=== PATIENT | female | born 1960 | race Caucasian/White ===

== ENCOUNTER → 2021-12-22 11:35 | Outpatient (CLI) | payer MEDICARE, OTHER, SELFPAY ==
[2021-12-22 18:46] LABS: Basophils # 0.1 K/mm3 (0-0.2); Basophils % 0.4 % (0.1-2.0); Eosinophils # 0.3 K/mm3 (0.0-0.4); Hematocrit 32.7 % (37.0-47.0); Hemoglobin 10.2 g/dL (12.2-16.2); Lymphocytes # 2.5 K/mm3 (0.7-4.5); Lymphocytes % 17.5 % (10-50); Mean Corpuscular HGB Conc 31.1 g/dL (31.8-35.4); Mean Corpuscular Hemoglobin 21.6 pg (27.0-31.2); Mean Corpuscular Volume 69.7 fl (81-99); Monocytes # 0.6 K/mm3 (0.1-1.0); Monocytes % 3.9 % (1.7-9.3); Neutrophils # 10.9 K/mm3 (1.8-7.8); Neutrophils % 76.3 % (37.0-80.0); Platelet Count 429 K/mm3 (142-424); Red Cell Distribution Width 18.4 % (11.5-17.5); White Blood Count 14.3 K/mm3 (4.8-10.8)
[2021-12-22 18:55] LABS: Alanine Aminotransferase 35 U/L (12-78); Albumin Level 4.4 g/dl (3.5-5.0); Albumin/Globulin Ratio 1.6 (1.1-1.8); Alkaline Phosphatase 96 U/L (38-126); Anion Gap 17.2 mEq/L (5-15); Aspartate Amino Transferase 58 U/L (14-36); Bilirubin,Total 0.6 mg/dl (0.2-1.3); Blood Urea Nitrogen 15 mg/dl (7-17); Calcium 9.2 mg/dl (8.4-10.2); Carbon Dioxide 29 mmol/L (22.0-30.0); Chloride 100 mmol/L (98-107); Chol/HDL Ratio 4.6 (1-3.5); Cholesterol 224 mg/dl (140-200); Estimated Glomerular Filt Rate 85 ml/min (>60); GFR (African American) 102 ML/MIN (>60); Globulin 2.8 g/dL (1.3-3.2); Glucose 122 mg/dl (74-100); HDL Cholesterol 49 mg/dl (40-60); Potassium 4.2 mmoL/L (3.5-5.1); Sodium 142 mmol/L (136-145); Total Protein,Serum 7.2 g/dl (6.3-8.2); Triglycerides 193 mg/dl (30-150); VLDL Cholesterol 39 mg/dL (0-40)
[2021-12-22 19:52] LABS: Hemoglobin A1C 7.2 % (4.0-6.0)
[2021-12-22 20:15] LABS: Direct LDL Cholesterol 147.54 mg/dL (100-129)
== END ==
PROVIDERS: PCP Family Medicine; Visit Provider Family Medicine
DX: E03.9 Hypothyroidism, unspecified (principal); I10 Essential (primary) hypertension; R73.9 Hyperglycemia, unspecified; Z00.00 Encounter for general adult medical examination without abnormal findings
CPT/HCPCS: 80053; 80061; 83036; 84443; 85025

== ENCOUNTER → 2022-04-21 23:16 | Outpatient (CLI) | payer MEDICARE, OTHER, SELFPAY ==
[2022-04-21 17:33] LABS: Basophils # 0.1 K/mm3 (0-0.2); Basophils % 0.5 % (0.1-2.0); Eosinophils # 0.2 K/mm3 (0.0-0.4); Eosinophils % 1.1 % (0.1-12.0); Hematocrit 40.4 % (37.0-47.0); Hemoglobin 12.6 g/dL (12.2-16.2); Lymphocytes # 2.6 K/mm3 (0.7-4.5); Lymphocytes % 18.5 % (10-50); Mean Corpuscular HGB Conc 31.2 g/dL (31.8-35.4); Mean Corpuscular Volume 76.8 fl (81-99); Mean Platelet Volume 8.4 fl (7.4-10.4); Monocytes # 0.8 K/mm3 (0.1-1.0); Neutrophils # 10.1 K/mm3 (1.8-7.8); Neutrophils % 73.8 % (37.0-80.0); Platelet Count 472 K/mm3 (142-424); Red Blood Count 5.26 M/mm3 (4.20-5.40); Red Cell Distribution Width 16.5 % (11.5-17.5); White Blood Count 13.7 K/mm3 (4.8-10.8)
[2022-04-21 17:41] LABS: Chloride 104 mmol/L (98-107); Potassium 3.9 mmoL/L (3.5-5.1); Sodium 141 mmol/L (136-145)
[2022-04-21 17:43] LABS: Alanine Aminotransferase 36 U/L (12-78); Blood Urea Nitrogen 18 mg/dl (7-17); Estimated Glomerular Filt Rate 125 ml/min (>60); GFR (African American) 151 ML/MIN (>60)
[2022-04-21 17:44] LABS: Albumin Level 4.4 g/dl (3.5-5.0); Albumin/Globulin Ratio 1.4 (1.1-1.8); Alkaline Phosphatase 80 U/L (38-126); Anion Gap 12.9 mEq/L (5-15); Aspartate Amino Transferase 53 U/L (14-36); Bilirubin,Total 0.9 mg/dl (0.2-1.3); Calcium 9.3 mg/dl (8.4-10.2); Carbon Dioxide 28 mmol/L (22.0-30.0); Globulin 3.2 g/dL (1.3-3.2); Glucose 144 mg/dl (74-100); Total Protein,Serum 7.6 g/dl (6.3-8.2)
[2022-04-21 18:04] LABS: Hemoglobin A1C 7.3 % (4.0-6.0)
[2022-04-21 18:15] LABS: Thyroid Stimulating Hormone < 0.02 uIU/mL (0.465-4.68)
== END ==
PROVIDERS: PCP Family Medicine; Visit Provider Family Medicine
DX: I10 Essential (primary) hypertension (principal); R73.9 Hyperglycemia, unspecified; E03.9 Hypothyroidism, unspecified
CPT/HCPCS: 80053; 83036; 84443; 85025

== ENCOUNTER → 2022-10-13 16:58 | Outpatient (CLI) | payer MEDICARE, MEDICAID, SELFPAY ==
[2022-10-13 16:38] LABS: Alanine Aminotransferase 57 U/L (12-78); Albumin Level 4.7 g/dl (3.5-5.0); Albumin/Globulin Ratio 1.3 (1.1-1.8); Alkaline Phosphatase 87 U/L (38-126); Anion Gap 21.1 mEq/L (5-15); Aspartate Amino Transferase 126 U/L (14-36); Bilirubin,Total 0.9 mg/dl (0.2-1.3); Blood Urea Nitrogen 17 mg/dl (7-17); Calcium 9.8 mg/dl (8.4-10.2); Carbon Dioxide 23 mmol/L (22.0-30.0); Chloride 102 mmol/L (98-107); Estimated Glomerular Filt Rate 101 ml/min (>60); GFR (African American) 122 ML/MIN (>60); Globulin 3.6 g/dL (1.3-3.2); Glucose 199 mg/dl (74-100); Potassium 4.1 mmoL/L (3.5-5.1); Sodium 142 mmol/L (136-145); Total Protein,Serum 8.3 g/dl (6.3-8.2)
[2022-10-13 16:46] LABS: Basophils # 0.1 K/mm3 (0-0.2); Basophils % 0.4 % (0.1-2.0); Eosinophils # 0.2 K/mm3 (0.0-0.4); Eosinophils % 1.1 % (0.1-12.0); Hemoglobin 13.4 g/dL (12.2-16.2); Lymphocytes # 3.2 K/mm3 (0.7-4.5); Mean Corpuscular Hemoglobin 24.7 pg (27.0-31.2); Mean Corpuscular Volume 77.4 fl (81-99); Mean Platelet Volume 9.1 fl (7.4-10.4); Monocytes # 0.9 K/mm3 (0.1-1.0); Neutrophils # 10.4 K/mm3 (1.8-7.8); Neutrophils % 70.5 % (37.0-80.0); Platelet Count 535 K/mm3 (142-424); Red Blood Count 5.42 M/mm3 (4.20-5.40); Red Cell Distribution Width 16.2 % (11.5-17.5); White Blood Count 14.8 K/mm3 (4.8-10.8)
[2022-10-13 17:08] LABS: Thyroid Stimulating Hormone 0.23 uIU/mL (0.465-4.68)
[2022-10-13 17:25] LABS: Hemoglobin A1C 7.8 % (4.0-6.0)
[2022-10-15 12:13] LABS: Lithium (Eskalith(R)) 0.2 mmol/L (0.5-1.2)
== END ==
PROVIDERS: PCP Family Medicine; Visit Provider Family Medicine
DX: I10 Essential (primary) hypertension (principal); E03.9 Hypothyroidism, unspecified; F31.9 Bipolar disorder, unspecified; E11.9 Type 2 diabetes mellitus without complications; Z79.84 Long term (current) use of oral hypoglycemic drugs
CPT/HCPCS: 80053; 80178; 83036; 84443; 85025

== ENCOUNTER → 2022-11-02 14:02 | Outpatient (CLI) | payer MEDICARE, MEDICAID, SELFPAY ==
--- NOTE | 2022-11-02 14:38 | ECG_ITS ---
APPROVED REPORT Exam: Resting ECG HR:103 bpm ECG Measurements Heart Rate 103 AXES MN 146 P 254 QRSd 137 QRS -80 QT 333 T 109 QTc 392 Conclusion ECTOPIC ATRIAL TACHYCARDIA RIGHT BUNDLE BRANCH BLOCK [120+ ms QRS DURATION, UPRIGHT V1, 40+ ms S IN I/aVL/V4/V5/V6] LEFT VENTRICULAR HYPERTROPHY AND ST-T CHANGE [VOLTAGE CRITERIA PLUS ST/T ABNORMALITY] POSSIBLE ANTERIOR MYOCARDIAL INFARCTION , OF INDETERMINATE AGE [30 ms Q WAVE IN V3/V4, OR R < 0.2 mV IN V4] INFERIOR MYOCARDIAL INFARCTION , POSSIBLY ACUTE [40+ ms Q WAVE AND/OR ST/T ABNORMALITY IN II/aVF] ACUTE DC UNCONFIRMED REPORT Electronically signed by : Dawson Robert MD 11/03/2022 17:14:32
--- NOTE | 2022-11-02 14:39 | PC.NURSE ---
Pre-op EKG completed on patient. Pt has no complaints or symptoms noted. Steph Ramirez and Dr. Chapman consulted due to EKG states Acute TN.
== END ==
PROVIDERS: PCP Family Medicine; Visit Provider Surgery
DX: Z01.810 Encounter for preprocedural cardiovascular examination (principal); C44.712 Basal cell carcinoma of skin of right lower limb, including hip
CPT/HCPCS: 93005

== ENCOUNTER 2022-11-05 08:35 | Day surgery (SDC) | payer MEDICARE, MEDICAID, SELFPAY ==
--- NOTE | 2022-11-03 13:54 | SUR.PREOP ---
Preparing to preop pt for procedure for -[address] Sousa. Pt had EKG yesterday. Upon reviewing EKG found to be abnormal spoke with rTenton Velázquez CRNA and said needed history and more info from pt. Dr. Sousa also made aware and wanted to review with H and P. Copy of EKG and H and P left on Dr. Sousa's desk in scope dictation room for his review. Attempted to call pt with no answer and a full voicemail so unable to leave a message. No history of previous EKG or cardiac history documented. To follow up with MD and anesthesia for further instruction.
[2022-11-03 14:08] VITALS: BMI 59.8
--- NOTE | 2022-11-03 14:12 | SUR.PREOP ---
Spoke with pt's daughter and was able to clarify that pt had a right Bundle Branch Block identified in her twenties and says everytime she gets an EKG, it's abnormal. 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 Updated Unique Velázquez CRNA and Dr. Sousa.
--- NOTE | 2022-11-03 14:17 | SUR.PREOP ---
Discussed EKG and Daughter's updated inofrmation on pt's histroy of RBBB and REGIONAL HR MANAGER is ok to proceed.
[2022-11-05 09:06] VITALS: BP 143/94; PULSE 82; RESP 18; TEMP 36.8; O2SAT 92
[2022-11-05 10:50] VITALS: TEMP 43
--- NOTE | 2022-11-05 11:05 | EXP.OP.NOTE ---
Date of procedure: 11/05/22 Pre-op Diagnosis:: Right lower extremity basal cell carcinoma (1.5 cm) Post-op Diagnosis:: Same Procedure performed:: Excision of right lower extremity basal cell carcinoma Surgeon:: Nuno Sousa MD WELDING MACHINE OPERATOR ELECTRO GAS:: Fareed Henriquez Anesthesia: MAC and local Estimated blood loss (mL): 10 Operative findings:: At least 4 mm margin obtained Operative note:: After informed consent was obtained the patient was taken to the operating room and placed in the supine position. Monitored anesthesia care ensued and her right lower extremity was prepped and draped in a sterile fashion. After infiltration with local anesthetic an elliptical incision was made around the lesion with scalpel. At least a 4 mm margin was obtained. The deep subcutaneous tissue was dissected with electrocautery. The lesion was excised in toto and passed off for pathologic evaluation after being marked for margin. The anterior margin was marked with a long suture and the proximal margin was marked with a short suture. Electrocautery was utilized to achieve hemostasis. The wound was irrigated. Skin was then reapproximated with interrupted 4-0 nylon. Dressings were applied and the patient was transferred to recovery in stable condition. Condition: stable Disposition: PACU Specimens:: Right lower extremity basal cell carcinoma Complications:: No immediate
--- NOTE | 2022-11-05 11:13 | EXP.ANES.CKL ---
[facility] Disclaimer: The information contained in this section may have been updated after the patient was seen, as this information can be updated by other users. Medical History Allergies Asthma Bipolar 1 disorder Chronic back pain Hyperglycemia Hypertension Hypothyroidism Hypothyroidism Migraine Obesity Osteoarthritis Surgical History History of appendectomy History of History of cholecystectomy History of colonoscopy History of dilatation and curettage History of hand surgery History of hysterectomy Family History Mother Heart attack Stroke Diabetes Hypertension Father Diabetes Hypertension Social History Smoking Status: Former smoker years smoked: 4 smoking status stop date: 02/22/1985 alcohol intake: never substance use type: denies use current occupational status: disabled Travel in the last 8 weeks: None [facility] [place] Anesthesia Checklist Patient Identification Patient Identification: Family and Verbal (Name & ) Structural Data Admitted From: Home Planned Operative Procedure/s: t/a Consent for Planned Operative Procedure(s) Verified: Yes NPO Status Verified Time NPO: 00:00 Additional verifications Anesthesia Reactions: No Hx Blood Transfusions: No Blood Transfusion Reaction: No Airway Assessment Mallampati Score:: Class I C-Spine Mobility Assessed: Yes TMJ Mobility Assessed: Yes Dentition: Good Dentition Neurological Assessment Level of Consciousness: Awake, Alert and Appropriate Anesthesia Plan Anesthesia Risk discussed: Yes Anesthesia Plan: Verified ASA Class: I Anesthesia Type: General
[2022-11-05 11:25] VITALS: BP 136/87; PULSE 70; RESP 18; O2SAT 97
[2022-11-05 11:35] VITALS: BP 129/76; BP 137/70; PULSE 66; PULSE 69; RESP 18; TEMP 36.2; O2SAT 95
[2022-11-05 11:46] VITALS: BP 133/88; PULSE 63; RESP 18; O2SAT 96
[2022-11-06 06:51] LABS: POC Glucose,Bedside 161 (70-110)
== END 2022-11-05 12:01 | disposition home or self-care (01) ==
PROVIDERS: PCP Family Medicine; Visit Provider Surgery
DX: C44.712 Basal cell carcinoma of skin of right lower limb, including hip (principal); E11.9 Type 2 diabetes mellitus without complications
CPT/HCPCS: 11602; 82962; 88305; 96374

== ENCOUNTER → 2022-11-12 15:20 | Outpatient (CLI) | payer MEDICARE, MEDICAID, SELFPAY | PROVIDERS: PCP Family Medicine; Visit Provider Internal Medicine | DX: R06.09 Other forms of dyspnea (principal) ==

== ENCOUNTER → 2022-11-13 10:26 | Outpatient (CLI) | payer MEDICARE, MEDICAID, SELFPAY | PROVIDERS: PCP Family Medicine; Visit Provider Nurse Practitioner | DX: R06.00 Dyspnea, unspecified (principal); R07.9 Chest pain, unspecified; I45.10 Unspecified right bundle-branch block; I10 Essential (primary) hypertension; R60.9 Edema, unspecified; J45.909 Unspecified asthma, uncomplicated; R94.31 Abnormal electrocardiogram [ECG] [EKG]; E66.9 Obesity, unspecified; Z68.43 Body mass index [BMI] 50.0-59.9, adult | CPT/HCPCS: 93225 ==

== ENCOUNTER → 2022-11-18 13:40 | Outpatient (CLI) | payer MEDICARE, MEDICAID, SELFPAY | PROVIDERS: PCP Family Medicine; Visit Provider Nurse Practitioner | DX: I10 Essential (primary) hypertension; I45.10 Unspecified right bundle-branch block; R06.00 Dyspnea, unspecified; R60.9 Edema, unspecified; R94.31 Abnormal electrocardiogram [ECG] [EKG]; Z87.891 Personal history of nicotine dependence | CPT/HCPCS: 93270 ==

== ENCOUNTER → 2022-11-23 11:09 | Outpatient (CLI) | payer MEDICARE, MEDICAID, SELFPAY ==
--- NOTE | 2022-11-23 11:09 | NM_ITS ---
APPROVED REPORT Exam: Nuclear Stress Test Indication: chest pain..soa..palpitations..fatigue..high bp..diabetes Patient Location: Outpatient Stress Tech: Vanessa Gallegos NE Tech:DONALDO Ramesh RT(R)(N) Ht: 5 ft 2 in Wt: 330 lbs Bra Size: 48dd HR: 83 bpm BP: 109/76 mmHg BSA: 2.37 m2 Rhythm: NSR TID: 1.15 BMI: 60.3 History: chest pain..soa..palpitations..fatigue..high bp..diabetes Procedure: Patient received 0.4 mg of intravenous Lexiscan, resting heart rate 83 bpm, resting blood pressure 109/76 mmHg, with Lexiscan maximum heart rate achieved was 94 bpm which is 85 % of the maximum predicted heart rate and blood pressure was 118/79 mmHg. With Lexiscan, patient denied any complaint of chest pain. The patient was not able to lay on her abdomen Cardiac Stress and Resting SPECT Images: Cardiac Stress and Resting SPECT images were obtained using technetium 99m Myoview 31.5 mCi stress and 10.92 mCi at rest. Raw images demonstrate significant soft tissue overlap with the cardiac borders. The patient was also unable to lie on her abdomen. Therefore, prone stress imaging could not be performed. This may affect the diagnostic interpretation of the study findings. Resting and stress imaging in supine position demonstrate a medium sized, moderate, fixed perfusion defect in the basal to mid inferior, inferior septal, and inferior lateral LV weeks. These findings are possibly related to diaphragmatic attenuation, but true perfusion defect cannot be entirely ruled out. Gated imaging demonstrates normal global and regional LV systolic function. LVEF is calculated at 65%. Conclusion: Raw images demonstrate significant soft tissue overlap with the cardiac borders. The patient was also unable to lie on her abdomen. Therefore, prone stress imaging could not be performed. This may affect the diagnostic interpretation of the study findings. Resting and stress imaging in supine position demonstrate a medium sized, moderate, fixed perfusion defect in the basal to mid inferior, inferior septal, and inferior lateral LV weeks. These findings are possibly related to diaphragmatic attenuation, but true fixed fixed perfusion defect cannot be entirely ruled out. No evidence of reversible ischemia. Gated imaging demonstrates normal global and regional LV systolic function. LVEF is calculated at 65%. Electronically signed by : Kanika Chapman MD 11/23/2022 23:17:42
--- NOTE | 2022-11-23 16:16 | CA_ITS ---
APPROVED REPORT Exam: Pharmacologic Technologist: Vanessa Gallegos Ht: 5 ft 3 in Wt: 330 lbs BSA: 2.39 m2 HR: 66 bpm BP: 109/76 mmHg Indications: Dyspnea Medical History Medications: Amlodipine,,,,, Lisinopril,,,,, Alprazolam,,,,, Levothyroxine,,,,, Metoprolol,,,,, Gabapentin,,,,, Pantoprazole,,,,, TopIRAMATE,,,,, ProMETHAZINE,,,,, ProAir,,,,, Zolpidem,,,,, Vitamin D2,,,,, Stress Test Details Test: LEXISCAN HR Resting HR: 83 bpm Max Heart Rate (APMHR): 157 bpm Max HR Achieved: 94 bpm Target HR (85% APMHR): 133 bpm % of APMHR: 60 Recovery HR: 82 bpm BP Resting BP: 109.0/76.0 mmHg Max BP: 118.0/79.0 mmHg Recovery BP: 91.0/67.0 mmHg ECG Resting ECG: Sinus rhythm, Right bundle branch block Stress ECG: No significant ST changes Arrhythmia: Frequent PACs Clinical Exercise duration: 04:00 min Highest Stage Achieved: Exercise capacity: 1.0 METs Stress ECG Conclusion Symptoms: Chest tightness, nausea, dyspnea Arrhythmias/Ectopy: Frequent PACs ST-T Changes: No significant ST changes Conclusion: Nondiagnostic Lexiscan stress test due to baseline abnormalities. Myoview images are reported separately. Test Summary REST 11:03 . . 83 . 109/ 76 . . Stage 1 . . . . . . . Myoview Injected Stage 1 01:00 . . 81 . . . . Stage 2 01:00 . . 84 . . . . Stage 3 01:00 . . 86 . 118/ 79 . . Stage 4 01:00 . . 84 . . . Stop exercise at 04:00 RECOVERY 01:00 . . 84 . 117/ 69 . . RECOVERY 02:00 . . 84 . 110/ 80 . . RECOVERY 03:00 . . 85 . 110/ 80 . . RECOVERY 04:00 . . 82 . 109/ 90 . . RECOVERY 05:00 . . 82 . 109/ 90 . . RECOVERY 06:00 . . 82 . 109/ 90 . . RECOVERY 06:21 . . 80 . 91/ 67 . . Electronically signed by : Kanika Chapman MD 11/23/2022 23:12:57
== END ==
PROVIDERS: PCP Family Medicine; Visit Provider Nurse Practitioner
DX: E66.9 Obesity, unspecified (principal); I10 Essential (primary) hypertension; I45.10 Unspecified right bundle-branch block; J45.909 Unspecified asthma, uncomplicated; R07.9 Chest pain, unspecified; R60.9 Edema, unspecified; R94.31 Abnormal electrocardiogram [ECG] [EKG]; R06.09 Other forms of dyspnea; Z68.43 Body mass index [BMI] 50.0-59.9, adult
CPT/HCPCS: 78452; 93017; A9502; J2785

== ENCOUNTER → 2022-12-04 10:05 | Outpatient (CLI) | payer MEDICARE, MEDICAID, SELFPAY ==
--- NOTE | 2022-12-04 10:08 | CA_ITS ---
APPROVED REPORT EXAM: Comprehensive 2D, Doppler, and color-flow Echocardiogram Cloth Tearer: Brianda Tubbs CRT Ht: 5 ft 3 in Wt: 330lbs BSA: 2.39 BP: 201/93 mmHg Indications: Abnormal ECG, Shortness of Breath, Diabetes, Obesity, Peripheral Edema, Hyperlipidemia, Hypertension/HDD 2D Dimensions LVOT 1.94 cm (M/F) 1.5-2.5 LA Volume 34.90 mL LA Volume Index 14.20 mL/m2 (M/F) 16-34 M-Mode Dimensions RVDd 2.74 cm (0.9-2.6) LA Diam 4.33 cm (1.9-4.0) LVDd 5.83 cm (3.5-5.7) Ao Diam 5.63 cm (2.0-3.7) LVDs 3.86 cm (3.5-5.7) IVSd 2.02 cm (0.6-1.1) PWd 0.81 cm (0.6-1.1) EF (Teich) 61.80% FS 33.80% EDV (Teich) 168.50 mL TAPSE 2.15 (<1.7) ESV (Teich) 64.30 mL LV Diastology E Decel Time 217.00 (160-240 msec) E/A Ratio 0.61 MED E' 3.80 (< 7 cm/sec) MED A' 10.40 cm/s E'/MED E' Ratio 13.74 (>14) LAT E' 6.80 (<10 cm/sec) LAT A' 10.20 cm/s E/LAT E' Ratio 7.68 (>14) Aortic Valve AO Peak GR. 10.10 mmHg Mitral Valve MV E Max Mega. 52.00 (40-130 cm/s) MV A Velocity 85.00 (40-130 cm/s) E/A Ratio 0.61 MV Decel. Time 217.00 (160-240 ms) MV PHT 63.00 ms Pulmonary Valve PV Peak Velocity 103.00 (50-150 cm/s) Tricuspid Valve TR P. Velocity 142.00 cm/s RAP Estimate 10.00 mmHg RVSP 18.10 mmHg Left Ventricle The left ventricle is normal size. The left ventricular systolic function is normal. The left ventricular ejection fraction is within the normal range. There is increased LV wall thickness, most notably in the mid septal region. The septum appears asynchronous. Transmitral Doppler flow pattern suggests impaired LV relaxation. LVEF is 55% Right Ventricle The right ventricle is mildly dilated. The right ventricular systolic function is normal. Atria The left atrium size is normal. The right atrium size is normal. There is no Doppler evidence of interatrial shunt. Aortic Valve The aortic valve is mildly thickened. There is no aortic valvular stenosis. No aortic regurgitation is present. Mitral Valve The mitral valve is mildly thickened. No evidence of mitral valve stenosis. Trace mitral regurgitation. Tricuspid Valve The tricuspid valve leaflets are thin and pliable. Trace tricuspid regurgitation. There is insufficient TR jet to estimate RVSP. Pulmonic Valve The pulmonary valve is grossly normal in structure. Trace pulmonic regurgitation. Great Vessels The aortic root is normal in size. The ascending aorta is borderline dilated, measuring 3.7 cm in diameter. The IVC is not well visualized. Pericardium There is no pericardial effusion. Other Information Study Quality: Technically Difficult Conclusion This was a technically difficult study due to poor accoustic windows. Normal biventricular systolic function. Increased LV wall thickness, most notably in the mid septal region. Mild RV dilation. No significant valvular stenosis or regurgitation. Borderline dilated ascending aorta (3.7 cm). Electronically signed by : Kanika Chapman MD 12/06/2022 16:21:26
== END ==
PROVIDERS: PCP Family Medicine; Visit Provider Nurse Practitioner
DX: R94.31 Abnormal electrocardiogram [ECG] [EKG] (principal); I10 Essential (primary) hypertension; I45.10 Unspecified right bundle-branch block; J45.909 Unspecified asthma, uncomplicated; R06.00 Dyspnea, unspecified; R07.9 Chest pain, unspecified; R60.9 Edema, unspecified; E66.9 Obesity, unspecified; Z68.43 Body mass index [BMI] 50.0-59.9, adult; Z87.891 Personal history of nicotine dependence; J82.83 Eosinophilic asthma
CPT/HCPCS: 93306

== ENCOUNTER → 2022-12-09 12:13 | Outpatient (CLI) | payer MEDICARE, MEDICAID, SELFPAY ==
--- NOTE | 2022-12-09 12:18 | MM_ITS ---
PROCEDURE INFORMATION: Exam: MG Bilateral Screening 3D Mammography Exam date and time: 12/09/2022 12:54 PM Age: 61 years old Clinical indication: Screening. Her maternal aunt, maternal grandmother and maternal cousin had breast cancer. TECHNIQUE: Imaging protocol: Bilateral Screening tomosynthesis and 2D mammography including computer-aided detection (CAD) when performed. COMPARISON: 1. MG [facility] DIAG RT [facility] COMP 11/12/2011 2:06 PM 2. MG [facility] MAMMOGRAM MEDICARE SCRNING 11/06/2011 3:15 PM FINDINGS: MAMMOGRAPHY: Breast composition: The breasts are almost entirely fatty. Mass: Questionable 0.5 cm oval mass in the inner left breast, middle to posterior 3rd, 10-11 cm from the nipple seen in the craniocaudad projection. This is superficial but not demonstrated within the skin on the tomosynthesis images. Architectural distortion: None. Calcifications: No suspicious calcifications. Asymmetric density: None. Skin thickening: None. Axillary adenopathy: None. IMPRESSION: Patient will be recalled for further evaluation of possible mass in the left breast which is very superficial and may be related to the skin. Advise clinical correlation to the Left breast and if a skin finding is present, an oval marker could be placed with repeat CC projection. If no skin finding noted, advise left diagnostic spot compression in the CC projection and full field lateral as well as left sonography. ASSESSMENT: BI-RADS Category 0: Incomplete- Need Additional Imaging Evaluation and/or Prior Mammograms for Comparison
== END ==
PROVIDERS: PCP Family Medicine; Visit Provider Family Medicine
DX: Z12.31 Encounter for screening mammogram for malignant neoplasm of breast
CPT/HCPCS: 77063; 77067

== ENCOUNTER 2023-01-15 15:08 | Observation (INO) | payer MEDICARE, MEDICAID, SELFPAY ==
[2023-01-15] VITALS (10 sets, daily range): BP systolic 114–147; BP diastolic 75–87; PULSE 68–75; RESP 16–20; TEMP 36.6–37.1; O2SAT 93–96; BMI 58.7; BMI 56.9
--- NOTE | 2023-01-15 15:10 | ECG_ITS ---
APPROVED REPORT Exam: Resting ECG HR:73 bpm ECG Measurements Heart Rate 73 AXES NH 157 P 66 QRSd 163 QRS -76 QT 439 T 85 QTc 466 Conclusion SINUS RHYTHM RIGHT BUNDLE BRANCH BLOCK [120+ ms QRS DURATION, UPRIGHT V1, 40+ ms S IN I/aVL/V4/V5/V6] LEFT ANTERIOR FASCICULAR BLOCK [QRS AXIS <= -45, QR IN I, RS IN II] LEFT VENTRICULAR HYPERTROPHY AND ST-T CHANGE [VOLTAGE CRITERIA PLUS ST/T ABNORMALITY] ABNORMAL ECG UNCONFIRMED REPORT Electronically signed by : Dawson Robert MD 01/16/2023 12:40:39
--- NOTE | 2023-01-15 15:47 | CT_ITS ---
PROCEDURE INFORMATION: Exam: CTA Chest With Contrast Exam date and time: 01/15/2023 4:35 PM Age: 62 years old Clinical indication: Other: Known thoracic aneurysm and cp; Additional info: Known thoracic aneurysm, cp TECHNIQUE: Imaging protocol: Computed tomographic angiography of the chest with contrast. Exam focused on the arteries. 3D rendering (Not supervised by radiologist): MIP and/or 3D reconstructed images were created by the technologist. Radiation optimization: All CT scans at this facility use at least one of these dose optimization techniques: automated exposure control; mA and/or kV adjustment per patient size (includes targeted exams where dose is matched to clinical indication); or iterative reconstruction. Contrast material: ISOVUE 370; Contrast volume: 100 ml; Contrast route: INTRAVENOUS (IV); REPORTING DATA: Count of CT and Cardiac NM exams in prior 12 months: This patient has received 0 known CTs and 0 known cardiac nuclear medicine studies in the 12 months prior to the current study. COMPARISON: CR XR CHEST PORTABLE 01/15/2023 3:58 PM FINDINGS: Limitations: Respiratory motion artifact severely degrades images, limiting sensitivity of exam. Pulmonary arteries: Dilated central pulmonary arteries suggestive of longstanding pulmonary arterial hypertension. No evidence of large central pulmonary emboli. Respiratory motion artifact limits evaluation for definitive exclusion of smaller pulmonary emboli. Aorta: Fusiform aneurysmal dilation of the ascending aorta, measuring 4.2 cm in diameter. No evidence of aortic dissection. Lungs: Calcified pulmonary granuloma in the right upper lobe consistent with chronic sequelae of prior granulomatous disease. Pleural spaces: No pneumothorax. No pleural effusion. Heart: No cardiomegaly. No significant pericardial effusion. Mediastinal space: Pericardial cyst measuring 4.5 x 3.0 x 1.5 cm in the left anterior-superior mediastinum overlying the left main pulmonary artery. No evidence of mass effect. Lymph nodes: Calcified lymph nodes consistent with chronic sequelae of prior granulomatous disease. Bones/joints: Multiple chronic rib fracture deformities noted. No evidence of acute osseous abnormality. Soft tissues: Unremarkable. IMPRESSION: 1. No acute findings in the chest. 2. Fusiform aneurysmal dilation of the ascending aorta, measuring 4.2 cm in diameter. No evidence of aortic dissection. 3. Pericardial cyst. 4. Dilated central pulmonary arteries suggestive of longstanding pulmonary arterial hypertension. 5. Additional non-acute ancillary findings are detailed above.
--- NOTE | 2023-01-15 15:47 | XR_ITS ---
FINAL REPORT CLINICAL HISTORY: dyspnea FINDINGS: A single portable view of the chest was obtained. The heart size and pulmonary vascularity are within normal limits. The mediastinum is normal. There is no evidence of pneumothorax. No pleural effusion is identified. The bony thorax is intact. Degenerative changes are noted of both shoulders. IMPRESSION: No active cardiopulmonary disease. Authenticated and ERN
--- NOTE | 2023-01-15 15:48 | CA_ITS ---
FINAL REPORT TECHNIQUE: Color Doppler, duplex Doppler and compression sonography of the right lower extremity venous system was performed. CLINICAL HISTORY: Right lower extremity swelling, CP, morbid obesity. COMPARISON: None FINDINGS: There is no evidence of deep venous thrombosis from the level of the groin to the calf. The veins are patent and compressible. IMPRESSION: No evidence of deep venous thrombosis right lower extremity. Reviewed, Interpreted and Dictated by Lev Mcgovern III, MD Transcribed by Johana Carter Authenticated and [facility]
--- NOTE | 2023-01-15 15:49 | HMH.EDCP ---
Discharge Plan Disposition Patient Disposition: Admitted Chief Complaint: Chest Pain Prescriptions Prescriptions: No Action promethazine 25 mg tablet 25 mg PO Q6H PRN (Reason: nausea and vomiting) 30 Days Qty: 90 3RF alprazolam 1 mg tablet 1 mg PO QID PRN (Reason: Anxiety) vilazodone 20 mg tablet 20 mg PO DAILY lithium carbonate 450 mg tablet extended release 450 mg PO DAILY ergocalciferol (vitamin D2) 50,000 unit tablet 50,000 unit PO DAILY zolpidem 10 mg tablet 10 mg PO HS PRN (Reason: Sleep) hydroxyzine pamoate 50 mg capsule 50 mg PO HS PRN (Reason: .) Patient Comments: TAKE 1 CAPSULE 1 TIME EACH DAY IN THE EVENING albuterol sulfate [ProAir HFA] 90 mcg/actuation HFA aerosol inhaler 2 puff inhalation Q6H PRN (Reason: shortness of breath or wheezing) 30 Days Qty: 8.5 2RF topiramate 50 mg tablet 100 mg PO HS metoprolol succinate 25 mg tablet extended release 24 hr 25 mg PO DAILY Qty: 90 3RF gabapentin 100 mg capsule 200 - 300 mg PO HS Qty: 90 1RF levothyroxine 300 mcg tablet 300 mcg PO DAILY Rx Instructions: MWFS lisinopril 20 mg tablet See Rx Instructions .ROUTE .COMPLEX Rx Instructions: TAKE 1 TABLET 1 TIME EACH DAY amlodipine [Norvasc] 5 mg tablet 5 mg PO DAILY pantoprazole 40 mg tablet,delayed release (DR/EC) See Rx Instructions .ROUTE .COMPLEX Rx Instructions: TAKE 1 TABLET 1 TIME EACH DAY FOR GERD Ozempic 0.25 mg or 0.5 mg (2 mg/3 mL) pen injector 0.25 mg SQ WEEKLY Rx Instructions: for 4 weeks Referrals Follow up/Referrals: Robel Stokes MD [Primary Care Provider] - See instructions Clinical Impressions Clinical Impression: Unstable angina Discharge ED Provider: Renetta Coe [facility] General Chief Complaint: Chest Pain Stated Complaint: chest pain Time Seen by Provider: 01/15/23 15:40 Mode of Arrival: EMS Source of Information: Patient Limitations: No Limitations Description of Symptoms (Recalled from ER Triage Doc. by RN): pt reports chest pain that started around 5am this morning, states it's in the center of her chest and radiates down her L arm, sees Dr Paez for cardiology, states she has had a stress test, is supposed to have a heart cath soon, denies nausea or vomiting, denies hx of [place] History of Present Illness HPI narrative: Patient is a 62-year-old female with a known history of thoracic aortic aneurysm of 3.7 cm also has a known history of coronary disease recently had a stress test that showed probable fixed perfusion defect without any evidence of reversible perfusion deficit but she was supposed to be scheduled for an outpatient left heart cath she states. She is followed by Dr. Paez's clinic here at [place]. Today with multiple complaints. She states she had some chest pain this substernal in nature on Wednesday lasted about 3 to 4 hours and then resolved. Subsequently after that she had some nausea and vomiting decreased p.o. all day yesterday and then some chest pain and left shoulder pain associated with near syncopal episode today which prompted her visit to the emergency department. She is still having some chest pain radiating into her back at the moment. Related Data Home Medications Medication Instructions Recorded Confirmed alprazolam 1 mg tablet 1 mg PO QID PRN Anxiety 12/22/21 01/06/23 ergocalciferol (vitamin D2) 50,000 50,000 unit PO DAILY Supplement 12/22/21 01/06/23 unit tablet hydroxyzine pamoate 50 mg capsule 50 mg PO HS PRN . 12/22/21 01/06/23 lithium carbonate 450 mg 450 mg PO DAILY mood 12/22/21 01/06/23 tablet,extended release vilazodone 20 mg tablet 20 mg PO DAILY . 12/22/21 01/06/23 zolpidem 10 mg tablet 10 mg PO HS PRN Sleep 12/22/21 01/06/23 topiramate 50 mg tablet 100 mg PO HS mood 10/13/22 01/06/23 amlodipine 5 mg tablet (Norvasc) 5 mg PO DAILY bp 11/05/22 01/06/23 levothyroxine 300 mcg tablet 300 mcg PO DAILY thy
[2023-01-15 15:54] LABS: Basophils # 0.1 K/mm3 (0-0.2); Basophils % 0.7 % (0.1-2.0); Eosinophils % 0.3 % (0.1-12.0); Hematocrit 46.5 % (37.0-47.0); Hemoglobin 14.9 g/dL (12.2-16.2); Lymphocytes # 2.6 K/mm3 (0.7-4.5); Lymphocytes % 37.3 % (10-50); Mean Corpuscular HGB Conc 32.1 g/dL (31.8-35.4); Mean Corpuscular Hemoglobin 25.7 pg (27.0-31.2); Mean Corpuscular Volume 80.1 fl (81-99); Mean Platelet Volume 9.1 fl (7.4-10.4); Monocytes # 0.5 K/mm3 (0.1-1.0); Monocytes % 6.8 % (1.7-9.3); Neutrophils # 3.7 K/mm3 (1.8-7.8); Neutrophils % 54.9 % (37.0-80.0); Platelet Count 358 K/mm3 (142-424); Red Blood Count 5.81 M/mm3 (4.20-5.40); Red Cell Distribution Width 16.5 % (11.5-17.5); White Blood Count 6.8 K/mm3 (4.8-10.8)
[2023-01-15 15:56] LABS: Chloride 104 mmol/L (98-107); Sodium 137 mmol/L (136-145)
[2023-01-15 15:57] LABS: Potassium 4.3 mmoL/L (3.5-5.1)
[2023-01-15 15:59] LABS: Alanine Aminotransferase 70 U/L (12-78); Albumin Level 4.7 g/dl (3.5-5.0); Albumin/Globulin Ratio 1.3 (1.1-1.8); Alkaline Phosphatase 67 U/L (38-126); Anion Gap 14.3 mEq/L (5-15); Aspartate Amino Transferase 118 U/L (14-36); Bilirubin,Total 0.6 mg/dl (0.2-1.3); Blood Urea Nitrogen 16 mg/dl (7-17); Calcium 8.7 mg/dl (8.4-10.2); Carbon Dioxide 23 mmol/L (22.0-30.0); Creatinine Clearance Estimated 45 mL/min (50-200); Estimated Glomerular Filt Rate 72 ml/min (>60); GFR (African American) 87 ML/MIN (>60); Globulin 3.7 g/dL (1.3-3.2); Glucose 175 mg/dl (74-100); Lipase 86 U/L (23-300); Total Protein,Serum 8.4 g/dl (6.3-8.2)
[2023-01-15 16:09] LABS: NT Pro Brain Natriuretic Pep. < 20.0 pg/mL (0-125)
[2023-01-15 16:12] LABS: Troponin I < 0.01 ng/ml (0.00-0.034)
--- NOTE | 2023-01-15 16:14 | PC.NURSE ---
CV here for doppler study
--- NOTE | 2023-01-15 16:32 | PC.NURSE ---
Rounded on patient; call light within reach of patient
--- NOTE | 2023-01-15 17:04 | EXP.HP ---
History of Present Illness *Admission Date: 01/15/23 *Reason for visit:: Chest pain *History of present illness: 62-year-old female with history of morbid obesity, hypertension, diabetes, and, bipolar. Had an abnormal stress test last month. Has been having anginal symptoms since. Had an episode last weekend with severe chest pain that radiated to her arm. It resolved on its own with rest. Repeat episode yesterday with pressure in her chest that was substernal, radiated to her back and down her left arm. [place] like her hand was numb. Came to the ER for further evaluation. Denies any nausea, vomiting, syncope. Minor shortness of breath during episode. Awoke with symptoms. Not brought on by exertion. Eval in the ER with elevated heart score. EKG with no ischemic changes and initial troponin negative. Given her risk factors and recent abnormal stress test, ER requested admission for further management. Patient reports she did have a near syncopal episode earlier today prompting her visit. At this time is chest pain-free on evaluation after arriving to the floor. Stable on room air. [facility] Disclaimer: The information contained in this section may have been updated after the patient was seen, as this information can be updated by other users. Medical History Allergies Asthma Bipolar 1 disorder Chest pain Chronic back pain Diabetes Dyspnea Edema Philippe's disease Hyperglycemia Hypertension Hypothyroidism Hypothyroidism Migraine Obesity Osteoarthritis Right bundle branch block Surgical History History of appendectomy History of History of cholecystectomy History of colonoscopy History of dilatation and curettage History of hand surgery History of hysterectomy Family History Diabetes Mother Father Heart attack Mother Hypertension Mother Father Stroke Mother Social History Smoking Status: Never smoker years smoked: 4 smoking status stop date: 02/22/1985 alcohol intake: never substance use type: denies use current occupational status: disabled Travel in the last 8 weeks: None Review of Systems Review of Systems Review of systems (narrative): 14 point review of systems performed, pertinent positives and negatives as per [facility] Meds Home Medications and Allergies Home Medications Medication Instructions Recorded Confirmed Type albuterol sulfate 90 mcg/actuation 2 puff inhalation Q6H PRN 12/22/21 01/15/23 Rx aerosol inhaler (ProAir HFA) shortness of breath or wheezing 30 days #8.5 grams alprazolam 1 mg tablet 1 mg PO QID Anxiety 12/22/21 01/15/23 History ergocalciferol (vitamin D2) 50,000 50,000 unit PO WEEKLY Supplement 12/22/21 01/15/23 History unit tablet hydroxyzine pamoate 50 mg capsule 50 mg PO HS Anxiety 12/22/21 01/15/23 History lithium carbonate 450 mg 450 mg PO DAILY mood 12/22/21 01/15/23 History tablet,extended release vilazodone 20 mg tablet 20 mg PO DAILY . 12/22/21 01/15/23 History zolpidem 10 mg tablet 10 mg PO HS Sleep 12/22/21 01/15/23 History topiramate 50 mg tablet 100 mg PO HS mood 10/13/22 01/15/23 History amlodipine 5 mg tablet (Norvasc) 5 mg PO DAILY bp 11/05/22 01/15/23 History levothyroxine 300 mcg tablet 300 mcg PO DAILY thyroid 11/05/22 01/15/23 History lisinopril 20 mg tablet 20 mg PO DAILY bp 11/05/22 01/15/23 History semaglutide 0.25 mg or 0.5 mg (2 0.25 mg SQ WEEKLY Diabetes 11/05/22 01/15/23 History mg/3 mL) subcutaneous pen injector (Ozempic) metoprolol succinate 25 mg 25 mg PO DAILY #90 tabs 11/12/22 01/15/23 Rx tablet,extended release 24 hr gabapentin 100 mg capsule 300 mg PO HS 01/15/23 01/15/23 History promethazine 25 mg tablet 25 mg PO Q6H nausea and vomiting 01/15/23 01/15/23 History New Prescriptions to Sta
--- NOTE | 2023-01-15 17:20 | PC.NURSE ---
Report called to Bonifacio ROJAS
--- NOTE | 2023-01-15 18:02 | PC.NURSE ---
Patient transporting to second floor
[2023-01-15 20:12] LABS: Troponin I < 0.01 ng/ml (0.00-0.034)
[2023-01-15 20:12] LABS: POC Glucose,Bedside 126 (70-110)
[2023-01-15 22:48] LABS: Troponin I < 0.01 ng/ml (0.00-0.034)
[2023-01-16] VITALS (11 sets, daily range): BP systolic 105–137; BP diastolic 57–80; PULSE 63–87; RESP 16–18; TEMP 36.8–37; O2SAT 90–94; BMI 56.9
[2023-01-16 05:51] LABS: POC Glucose,Bedside 154 (70-110)
--- NOTE | 2023-01-16 05:53 | PC.NURSE ---
pt had c/o anxiety and nausea t/o shift - tx per mar was successful. a/o x 4. denies cp or soa. held am ssi with fsbs 154 r/t npo status.
[2023-01-16 07:21] LABS: Basophils % 0.4 % (0.1-2.0); Eosinophils % 0.3 % (0.1-12.0); Hematocrit 43.3 % (37.0-47.0); Hemoglobin 13.8 g/dL (12.2-16.2); Lymphocytes # 1.7 K/mm3 (0.7-4.5); Lymphocytes % 28.9 % (10-50); Mean Corpuscular HGB Conc 31.9 g/dL (31.8-35.4); Mean Corpuscular Hemoglobin 25.4 pg (27.0-31.2); Mean Corpuscular Volume 79.8 fl (81-99); Mean Platelet Volume 8.5 fl (7.4-10.4); Monocytes # 0.4 K/mm3 (0.1-1.0); Monocytes % 6.6 % (1.7-9.3); Neutrophils # 3.6 K/mm3 (1.8-7.8); Neutrophils % 63.8 % (37.0-80.0); Platelet Count 258 K/mm3 (142-424); Red Blood Count 5.43 M/mm3 (4.20-5.40); Red Cell Distribution Width 16.7 % (11.5-17.5); White Blood Count 5.7 K/mm3 (4.8-10.8)
[2023-01-16 07:32] LABS: Alanine Aminotransferase 52 U/L (12-78); Albumin Level 4.2 g/dl (3.5-5.0); Albumin/Globulin Ratio 1.3 (1.1-1.8); Alkaline Phosphatase 89 U/L (38-126); Aspartate Amino Transferase 82 U/L (14-36); Bilirubin,Total 0.5 mg/dl (0.2-1.3); Blood Urea Nitrogen 14 mg/dl (7-17); Calcium 8.1 mg/dl (8.4-10.2); Carbon Dioxide 24 mmol/L (22.0-30.0); Chloride 100 mmol/L (98-107); Creatinine Clearance Estimated 45 mL/min (50-200); Estimated Glomerular Filt Rate 63 ml/min (>60); GFR (African American) 76 ML/MIN (>60); Globulin 3.3 g/dL (1.3-3.2); Glucose 196 mg/dl (74-100); Magnesium 1.4 mg/dl (1.6-2.3); Sodium 135 mmol/L (136-145); Total Protein,Serum 7.5 g/dl (6.3-8.2)
[2023-01-16 07:58] LABS: Thyroid Stimulating Hormone 3.74 uIU/mL (0.465-4.68)
[2023-01-16 08:17] LABS: Hemoglobin A1C 6.9 % (4.0-6.0)
--- NOTE | 2023-01-16 08:41 | ECG_ITS ---
APPROVED REPORT Exam: Resting ECG HR:81 bpm ECG Measurements Heart Rate 81 AXES AZ 148 P -82 QRSd 137 QRS -77 QT 403 T 80 QTc 440 Conclusion ELECTRONIC VENTRICULAR PACEMAKER ST DEPRESSION, CONSIDER SUBENDOCARDIAL INJURY [0.1+ mV ST DEPRESSION] ABNORMAL ECG UNCONFIRMED REPORT Electronically signed by : Dawson Robert MD 01/18/2023 08:25:41
--- NOTE | 2023-01-16 08:57 | PC.NURSE ---
Home Medications rod Perez Medication Instructions Recorded Confirmed alprazolam 1 mg tablet 1 mg PO QID Anxiety 12/22/21 01/15/23 ergocalciferol (vitamin D2) 50,000 50,000 unit PO WEEKLY Supplement 12/22/21 01/15/23 unit tablet hydroxyzine pamoate 50 mg capsule 50 mg PO HS Anxiety 12/22/21 01/15/23 lithium carbonate 450 mg 450 mg PO DAILY mood 12/22/21 01/15/23 tablet,extended release vilazodone 20 mg tablet 20 mg PO DAILY . 12/22/21 01/15/23 zolpidem 10 mg tablet 10 mg PO HS Sleep 12/22/21 01/15/23 topiramate 50 mg tablet 100 mg PO HS mood 10/13/22 01/15/23 amlodipine 5 mg tablet (Norvasc) 5 mg PO DAILY bp 11/05/22 01/15/23 levothyroxine 300 mcg tablet 300 mcg PO DAILY thyroid 11/05/22 01/15/23 lisinopril 20 mg tablet 20 mg PO DAILY bp 11/05/22 01/15/23 semaglutide 0.25 mg or 0.5 mg (2 0.25 mg SQ WEEKLY Diabetes 11/05/22 01/15/23 mg/3 mL) subcutaneous pen injector (Ozempic) gabapentin 100 mg capsule 300 mg PO HS 01/15/23 01/15/23 promethazine 25 mg tablet 25 mg PO Q6H nausea and vomiting 01/15/23 01/15/23 Previous Rx's Medication Instructions Recorded albuterol sulfate 90 mcg/actuation 2 puff inhalation Q6H PRN 12/22/21 aerosol inhaler (ProAir HFA) shortness of breath or wheezing 30 days #8.5 grams metoprolol succinate 25 mg 25 mg PO DAILY #90 tabs 11/12/22 tablet,extended release 24 hr
[2023-01-16 09:13] LABS: Troponin I < 0.01 ng/ml (0.00-0.034)
--- NOTE | 2023-01-16 09:27 | IR_ITS ---
APPROVED REPORT Patient Location: Inpatient Applications Specialist: DONALDO Garduno RT (R) PROCEDURES Left heart catheterization Left ventriculogram Selective coronary angiogram INDICATION Abnormal stress test, Unstable angina Informed consent was obtained prior to the procedure. COMPLICATIONS None Estimated Blood Loss: Less than 10 ML TECHNIQUE One percent lidocaine used to anesthetize the right anterior aspect of the wrist. The right radial artery was accessed via the Seldinger technique. A 6 Palestinian sheath was placed in the right radial artery. 2.5 mg of Verapamil, 800 mcg of nitroglycerin, 1mg Lidocaine and 5000 U Heparin were given through the arterial sheath. The papa catheter was also used to perform left heart catheterization, left ventriculogram and selective coronary angiogram. At the end of the procedure the sheath was removed good hemostasis was achieved using Traclet band, patient was transferred to the postop holding area in stable condition. ANGIOGRAPHIC RESULTS The left main artery Normal The left anterior descending artery Normal The circumflex artery Normal The right coronary artery Dominant normal The HERNANDEZ ventriculogram reveals Normal 65% The left ventricular end-diastolic pressure Severely elevated at 30 mmHg IMPRESSION Normal coronary arteries Normal ejection fraction Elevated LVEDP consistent with diastolic dysfunction PLAN 1. Recommend sleep study 2. Treatment of diastolic dysfunction with diuretics 3. Recommend weight loss 4. Exercise program Electronically signed by : Sharan Paez MD 01/16/2023 10:35:58
--- NOTE | 2023-01-16 10:01 | PC.NURSE ---
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
--- NOTE | 2023-01-16 10:26 | HMH.PHAINT1 ---
Pharmacy Intervention Comments: MEDICATION RECONCILIATION COMPLETE USING MOST RECENT CARDIOLOGY OFFICE VISIT NOTE AND EXTERNAL PHARMACY FILL HISTORY.
[2023-01-16 11:34] LABS: POC Glucose,Bedside 145 (70-110)
--- NOTE | 2023-01-16 13:12 | EXP.DC.SUM ---
General Admission date:: 01/15/23 HPI HPI HPI: 62-year-old female with history of morbid obesity, hypertension, diabetes, and, bipolar. Had an abnormal stress test last month. Has been having anginal symptoms since. Had an episode last weekend with severe chest pain that radiated to her arm. It resolved on its own with rest. Repeat episode yesterday with pressure in her chest that was substernal, radiated to her back and down her left arm. [place] like her hand was numb. Came to the ER for further evaluation. Denies any nausea, vomiting, syncope. Minor shortness of breath during episode. Awoke with symptoms. Not brought on by exertion. Eval in the ER with elevated heart score. EKG with no ischemic changes and initial troponin negative. Given her risk factors and recent abnormal stress test, ER requested admission for further management. Patient reports she did have a near syncopal episode earlier today prompting her visit. At this time is chest pain-free on evaluation after arriving to the floor. Stable on room air. Hospital Course Hospital Course Hospital Course: 62-year-old female with abnormal stress test recently who presented to the ER with unstable angina. Pain presented at rest. Discussed case with ER physician, given patient's elevated HEART score of 6, request admission for serial troponins, monitoring telemetry and cardiology evaluation. Cardiology consulted from the ER. Medicine agreed to admit for further management. Patient stable overnight. Had some recurrent chest pain in the morning. Taken for left heart cath with normal coronaries identified. Cardiology recommends medical management. Stable to discharge home. Problems addressed as follows: Unstable angina Abnormal test Hypertension -Patient with abnormal stress test obtained beginning of November. Patient being seen by cardiology managed medically. Presented to the ER because of abnormal chest pain with radiation to her back and left arm. Stress test findings showed concern for medium sized moderate fixed perfusion defect in the basal to mid inferior, inferoseptal, inferolateral LV weeks. Concern for diaphragmatic attenuation. No evidence of reversible ischemia. EF calculated at 65%. Serial troponins less than 0.01. EKG with right bundle branch block and left anterior fascicular block. Taken for left heart cath with findings as below. Cardiology recommends continuing medical management, will add diuretic. Initiating HCTZ 50 mg daily given patient's hypomagnesemia. Continue home medications for hypertension. No indication to continue aspirin or Plavix. ANGIOGRAPHIC RESULTS The left main artery Normal, The left anterior descending artery Normal The circumflex artery Normal, The right coronary artery Dominant normal The HERNANDEZ ventriculogram reveals Normal 65% The left ventricular end-diastolic pressure Severely elevated at 30 mmHg IMPRESSION Normal coronary arteries; Normal ejection fraction; Elevated LVEDP consistent with diastolic dysfunction Continue home medications for bipolar including vilazodone 20 mg daily, Topamax 100 mg nightly, lithium carbonate 450 mg daily, hydroxyzine 50 mg nightly, alprazolam 1 mg 4 times a day as needed. Continue gabapentin 300 mg nightly for neuropathy Hypothyroidism: TSH 3.75, controlled. Continue 300 mcg levothyroxine daily Diabetes: A1c elevated at 6.9, in a controlled range however. Resume home history include Ozempic weekly Stable for discharge home. Adjustment to medical management. Follow-up with cardiology for further monitoring and further referral for sleep study as above. Spent 35 minutes in discharge counseling and direct care with patient. Exam Data for Last 24 hours Vital signs and Labs for Last 24 Hours: Temp Pulse Resp BP Pulse Ox O2 Del Method 98.2 F 65 16 124/65 94 L Room Air 01/16/23 12:45 01/16/23 12:45 01/16/23 12:45 01/16/23 12:45 01/16/23 12:45 01/16/23 12:49 Laboratory Res
--- NOTE | 2023-01-18 15:43 | CARE MANAGER ---
Called and spoke with patient regarding recent discharge. She stated that she is doing well, plans to schedule a f/u appt with cardiology that was ordered at discharge. Patient had no concerns or questions at time of call.
== END 2023-01-16 14:46 | disposition home or self-care (01) ==
LOC: ER 16:54 → 2ND 17:10
PROVIDERS: Internal Medicine; Admitting Provider Internal Medicine Adolescent Medicine; Emergency Provider Student in an Organized Health Care Education/Training Program; PCP Family Medicine; Visit Provider Internal Medicine Adolescent Medicine
DX: I20.0 Unstable angina (principal); R94.39 Abnormal result of other cardiovascular function study; I77.810 Thoracic aortic ectasia; E06.3 Autoimmune thyroiditis; E11.9 Type 2 diabetes mellitus without complications; F43.10 Post-traumatic stress disorder, unspecified; G62.9 Polyneuropathy, unspecified; F31.9 Bipolar disorder, unspecified; J45.909 Unspecified asthma, uncomplicated; E66.01 Morbid (severe) obesity due to excess calories; Z68.43 Body mass index [BMI] 50.0-59.9, adult; I10 Essential (primary) hypertension; Z79.4 Long term (current) use of insulin; Z79.899 Other long term (current) drug therapy; Z66 Do not resuscitate; R55 Syncope and collapse; M79.89 Other specified soft tissue disorders
CPT/HCPCS: 36415; 71045; 71275; 80053; 82962; 83036; 83690; 83735; 83880; 84443; 84484; 85025; 93005; 93458; 93971; 99152; 99291; C1725; C1760; C1769; G0378; J1644; J2405; J3475; Q9967

== ENCOUNTER → 2023-01-18 13:54 | Outpatient (CLI) | payer MEDICARE, MEDICAID, SELFPAY ==
[2023-01-16 11:09] VITALS: BMI 56.9
--- NOTE | 2023-01-18 13:55 | MM_ITS ---
PROCEDURE INFORMATION: Exam: US Left Breast, Complete MG Left Diagnostic Breast Tomosynthesis Exam date and time: 01/18/2023 2:49 PM Age: 62 years old Clinical indication: Patient recalled on the basis of a screening mammogram for further evaluation; Left breast; mass TECHNIQUE: Imaging protocol: Complete ultrasound of all four quadrants of the left breast and the retroareolar regions, including ultrasound of the axilla when performed. Left Diagnostic tomosynthesis and 2D mammography including computer-aided detection (CAD) when performed. Unilateral or bilateral exam. COMPARISON: MG MM DIG MAMM DX UNILAT LT CAD 01/18/2023 1:45 PM FINDINGS: MAMMOGRAPHY: Digital diagnostic spot compression views of the left breast and 90 degree lateral view of the left breast demonstrate normal overlapping fibroglandular structures without persistent mass or asymmetry identified. ULTRASOUND: Sonographic images of the left breast including the retroareolar region, all 4 quadrants and the axilla do not demonstrate any solid or cystic masses. No architectural distortion or acoustical shadowing. No skin thickening or axillary adenopathy. IMPRESSION: No mammographic or sonographic evidence of malignancy. Annual bilateral mammographic screening is recommended unless otherwise clinically indicated. ASSESSMENT: Assessment: BI-RADS Category 1: Negative
== END ==
PROVIDERS: PCP Family Medicine; Visit Provider Family Medicine
DX: R92.8 Other abnormal and inconclusive findings on diagnostic imaging of breast (principal); N63.20 Unspecified lump in the left breast, unspecified quadrant
CPT/HCPCS: 76641; 77061; 77065; G0279; J1644

== ENCOUNTER 2023-09-21 18:00 | Outpatient (CLI) | payer MEDICARE, MEDICAID, SELFPAY ==
[2023-09-21 16:55] LABS: Basophils # 0.1 K/mm3 (0-0.2); Basophils % 0.7 % (0.1-2.0); Eosinophils # 0.1 K/mm3 (0.0-0.4); Eosinophils % 0.6 % (0.1-12.0); Hemoglobin 13.4 g/dL (12.2-16.2); Lymphocytes # 3.3 K/mm3 (0.7-4.5); Mean Corpuscular Hemoglobin 26.9 pg (27.0-31.2); Mean Corpuscular Volume 84.2 fl (81-99); Mean Platelet Volume 8.3 fl (7.4-10.4); Monocytes # 0.7 K/mm3 (0.1-1.0); Monocytes % 4.8 % (1.7-9.3); Neutrophils # 11.4 K/mm3 (1.8-7.8); Neutrophils % 73.1 % (37.0-80.0); Platelet Count 466 K/mm3 (142-424); Red Blood Count 4.99 M/mm3 (4.20-5.40); Red Cell Distribution Width 14.9 % (11.5-17.5); White Blood Count 15.6 K/mm3 (4.8-10.8)
[2023-09-21 17:02] LABS: MANUAL DIFFERENTIAL MANUAL DIFFERENTIAL (MANUAL DIFF)
[2023-09-21 17:28] LABS: Alanine Aminotransferase 21 U/L (12-78); Albumin Level 4.2 g/dl (3.5-5.0); Albumin/Globulin Ratio 1.2 (1.1-1.8); Alkaline Phosphatase 83 U/L (38-126); Anion Gap 14.7 mEq/L (5-15); Aspartate Amino Transferase 30 U/L (14-36); Bilirubin,Total 1.1 mg/dl (0.2-1.3); Blood Urea Nitrogen 18 mg/dl (7-17); Calcium 9.6 mg/dl (8.4-10.2); Carbon Dioxide 27 mmol/L (22.0-30.0); Chloride 100 mmol/L (98-107); Chol/HDL Ratio 4.6 (1-3.5); Cholesterol 188 mg/dl (140-200); Estimated Glomerular Filt Rate 38 ml/min (>60); GFR (African American) 46 ML/MIN (>60); Globulin 3.4 g/dL (1.3-3.2); Glucose 137 mg/dl (74-100); HDL Cholesterol 41 mg/dl (40-60); Potassium 3.7 mmoL/L (3.5-5.1); Sodium 138 mmol/L (136-145); Total Protein,Serum 7.6 g/dl (6.3-8.2); Triglycerides 132 mg/dl (30-150); VLDL Cholesterol 26 mg/dL (0-40)
[2023-09-21 17:39] LABS: Direct LDL Cholesterol 116.73 mg/dL (100-129)
[2023-09-21 17:57] LABS: Thyroid Stimulating Hormone 0.12 uIU/mL (0.465-4.68)
[2023-09-21 18:51] LABS: Hypochromasia 1+; Lymphocytes % 28 % (10-50); Monocytes % 3 % (2-9); Neutrophils % 69 % (42-76); Platelet Estimate Slight Increase; Total Cells Counted 100
[2023-09-21 19:39] LABS: Hemoglobin A1C 5.3 % (4.0-6.0)
== END 2023-09-21 23:59 | disposition home or self-care (01) ==
LOC: LAB.DROPOF 18:00
PROVIDERS: PCP Family Medicine; Visit Provider Family Medicine
DX: E11.9 Type 2 diabetes mellitus without complications (principal)
CPT/HCPCS: 80050; 80053; 80061; 83036; 84443; 85007; 85025

== ENCOUNTER 2023-12-12 18:27 | Emergency (ER) | payer MEDICARE, MEDICAID, SELFPAY ==
[2023-12-12 18:27] VITALS: BP 118/71; PULSE 73; RESP 17; TEMP 37; O2SAT 97; BMI 43.5
--- NOTE | 2023-12-12 18:30 | HMH.EDGENADL ---
Discharge Plan Disposition Patient Disposition: Xfer Short-Term Hosp Condition: Serious Prescriptions Prescriptions: No Action lithium carbonate 450 mg tablet extended release 450 mg PO DAILY hydrochlorothiazide 25 mg tablet 25 mg PO DAILY 30 Days Qty: 30 0RF albuterol sulfate 90 mcg/actuation HFA aerosol inhaler 2 puff INHALATION Q6HP PRN (Reason: Shortness Of Breath) Qty: 8.5 3RF alprazolam 1 mg tablet 1 mg PO QID PRN (Reason: Anxiety) Qty: 60 0RF furosemide 40 mg tablet 40 mg PO DAILY Qty: 30 2RF gabapentin 100 mg capsule 200 mg PO HS Qty: 60 2RF hydroxyzine pamoate 50 mg capsule 50 mg PO HS Qty: 30 3RF lisinopril 20 mg tablet 20 mg PO DAILY Qty: 30 2RF Rx Instructions: TAKE 1 TABLET 1 TIME EACH DAY metoprolol succinate 25 mg tablet extended release 24 hr 25 mg PO DAILY 30 Days Qty: 30 3RF Ozempic 0.25 mg or 0.5 mg (2 mg/3 mL) pen injector 0.5 mg SQ WEEKLY 30 Days Qty: 6 3RF levothyroxine 300 mcg tablet 300 mcg PO DAILYDM Qty: 90 3RF Rx Instructions: MWF Activity Restrictions/Add. Instructions Additional Instructions/Restrictions: To the [facility] emergency department care of Dr. Smith Clinical Impressions Clinical Impression: Acute uremia, Toxic metabolic encephalopathy Acute renal failure Qualifiers: Acute renal failure type: unspecified Qualified Code(s): N17.9 - Acute kidney failure, unspecified Stand Alone Forms Stand Alone Forms: Transfer Record - ED Instructions Patient Instructions: DI for Diarrhea and Traveler's Diarrhea -- Adult, DI for Diarrhea and Traveler's Diarrhea -- Child, DI for Nausea -- Adult, DI for Nausea -- Child Print Language Print Language: Polish Discharge ED Provider: Germán Mg General Adult HPI <MARIANO Can - Last Filed: 12/12/23 21:15> General Chief complaint: Weakness Stated complaint: Nausea/Vomiting/Diarrhea Time Seen by Provider: 12/12/23 18:29 History of Present Illness HPI narrative: Patient presents via EMS for reported nausea vomiting diarrhea. Patient herself is a poor historian and is oriented to self but not to circumstance. I do not know what her functional or mental baseline is. Apparently daughter called 911. At the moment patient is not complaining of any acute problems but she is an unreliable historian. She denies chest pain shortness of breath fever chills hemoptysis hematochezia melena hematemesis. Related Data Home Medications ?Medication ?Instructions ?Recorded ?Confirmed lithium carbonate 450 mg 450 mg PO DAILY mood 12/22/21 09/21/23 tablet,extended release Previous Rx's ?Medication ?Instructions ?Recorded albuterol sulfate 90 mcg/actuation 2 puff inhalation Q6HP PRN 09/22/23 aerosol inhaler Shortness Of Breath #8.5 grams alprazolam 1 mg tablet 1 mg PO QID PRN Anxiety #60 tabs 09/22/23 furosemide 40 mg tablet 40 mg PO DAILY #30 tabs 09/22/23 gabapentin 100 mg capsule 200 mg (2 x 100 mg) PO HS NERVE 09/22/23 PAIN #60 caps hydrochlorothiazide 25 mg tablet 25 mg PO DAILY 30 days #30 tabs 09/22/23 hydroxyzine pamoate 50 mg capsule 50 mg PO HS Anxiety #30 caps 09/22/23 lisinopril 20 mg tablet 20 mg PO DAILY High Blood Pressure 09/22/23 #30 tabs metoprolol succinate 25 mg 25 mg PO DAILY 30 days #30 tabs 09/22/23 tablet,extended release 24 hr semaglutide 0.25 mg or 0.5 mg (2 0.5 mg (0.736 mL) SQ WEEKLY 09/22/23 mg/3 mL) subcutaneous pen injector Diabetes 30 days #6 mL (Ozempic) levothyroxine 300 mcg tablet 300 mcg PO DAILYDM thyroid #90 tabs 09/28/23 Allergies Allergy/AdvReac Type Severity Reaction Status Date / Time sumatriptan [From Imitrex] Allergy Severe Anaphylaxis Verified 09/21/23 14:11 Tetracyclines Allergy Rash Verified 09/21/23 14:11 [facility] <MARIANO Can - Last Filed: 12/12/23 21:15> [facility] Disclaimer: The information contained in this section may have been updated after the patient was seen, as this information can be updated by other users. Medical History Edema Chest pain Dyspnea Philippe's disease Right bundle branch block Diabetes Allergies Migraine Hypothyroidism Hyperglycemia Obesity Bipolar 1 disorder Chronic back pain Osteoarthritis Asthma Hypertension Hypothyroidism Surgical History History of colonoscopy History of appendectomy History of hand surgery History of dilatation and curettage History of History of cholecystectomy History of hysterectomy Family History Mother Heart attack Stroke Diabetes Hypertension Father Diabetes Hypertension Social History Smoking Status: Unknown if ever smoked years smoked: 4 smoking status stop date: 02/22/1985 alcohol intake: never substance use type: denies use current occupational status: disabled Travel in the last 8 weeks: None Other Medical History Have you received the Flu Vaccine for this season: No Have you received the Pneumonia Vaccine: No <MARIANO Can - Last Filed: 12/12/23 21:15> ROS Obtained: Yes Systems reviewed as appropriate & no additional complaints except as documented Physical Exam <MARIANO Can - Last Filed: 12/12/23 21:15> General General appearance: alert and in no apparent distress Respiratory Respiratory exam: Present normal lung sounds bilaterally Cardiovascular Cardiovascular exam: Present regular rate Neurological Exam Neurological exam: Present alert and oriented X3 Medical Decision Making <MARIANO Can - Last Filed: 12/12/23 21:15> Medical Records Medical records reviewed: Yes I reviewed the patient's medical records. Screening: Per USPSTF and CDC recommendations, given the prevalence of disease in our region, it is our hospital?s policy to screen for HIV and viral Hepatitis for all patients aged 18 and over and those with ongoing risk factors. Lukas Inquiry Pt receiving controlled substance: No Vital Signs: 12/12/23 18:27 12/12/23 19:06 Temperature 98.6 F Temperature Source Oral Pulse Rate 69 Pulse Rate [Right Radial] 73 Respiratory Rate 17 Blood Pressure 118/71 Blood Pressure [Right Arm] 118/71 Blood Pressure Mean [Right Arm] 86 02 Sat by Pulse Oximetry 97 99 Oxygen Delivery Method Room Air Lab Data Lab results reviewed: Yes I reviewed the patient's lab results. Lab Results 12/12/23 18:30: WBC 15.1 H, RBC 4.91, Hgb 13.0, Hct 39.4, MCV 80.2 L, MCH 26.5 L, MCHC 33.1, RDW 17.1, Plt Count 573 H, MPV 7.8, Neut % (Auto) 72.6, Lymph % (Auto) 21.9, Nelson % (Auto) 4.5, Eos % (Auto) 0.4, Baso % (Auto) 0.6, Neut # (Auto) 10.9 H, Lymph # (Auto) 3.3, Nelson # (Auto) 0.7, Eos # (Auto) 0.1, Baso # (Auto) 0.1, Total Counted 100, Neutrophils % (Manual) 73, Lymphocytes % (Manual) 21, Atypical Lymphs % 2.0, Monocytes % (Manual) 4, Platelet Estimate Moderate i, Hypochromasia 1+, Microcytosis 1+, Sodium 142, Potassium 3.7, Chloride 113 H, Carbon Dioxide 12 L, Anion Gap 20.7 H, BUN 123 H*, Creatinine 5.60 H, Estimated Creat Clear 10, Estimated GFR 8 L*, Est GFR ( Amer) 9 L*, Glucose 135 H, Lactate 1.3, Calcium 10.7 H, Magnesium 2.5 H, Total Bilirubin 1.2, AST 24, ALT 16, Alkaline Phosphatase 82, Troponin I 0.02, Total Protein 8.4 H, Albumin 4.9, Globulin 3.5 H, Albumin/Globulin Ratio 1.4, Procalcitonin 0.130, HIV 1&2 Antibody Rapid Nonreactive 12/12/23 19:35: SARS-CoV-2 (PCR) Not detected, Influenza A Untype (PCR) Not detected, Influenza Type B (PCR) Not detected 12/12/23 20:27: VBG pH 7.25 L, VBG pCO2 32.9 L, VBG pO2 29.5, VBG HCO3 14.1 L, VBG Total CO2 15.1 L, VBG O2 Saturation 56.7, VBG Base Excess -13.1 L, VBG Lactic Acid 2.7 H 12/12/23 21:30: Urine Color Yellow, Urine Appearance Clear, Urine pH 6.0, Ur Specific Blodgett 1.015, Urine Protein Negative, Urine Glucose (UA) Negative, Urine Ketones Negative, Urine Blood 2+ A, Urine Nitrate Negative, Urine Bilirubin 1+ A, Urine Urobilinogen 0.2, Ur Leukocyte Esterase Negative, Urine RBC 10-20, Urine WBC Occasional, Ur Squamous Epith Cells None, Urine Bacteria None 12/12/23 : Urine Color Yellow, Urine Appearance Cloudy, Urine pH 6.0, Ur Specific Blodgett 1.020, Urine Protein Negative, Urine Glucose (UA) Negative, Urine Ketones Negative, Urine Blood 3+ A, Urine Nitrate Negative, Urine Bilirubin 1+ A, Urine Urobilinogen 0.2, Ur Leukocyte Esterase Negative, Urine RBC 10-20, Urine WBC Occasional, Ur Squamous Epith Cells Occasional, Urine Bacteria None, Urine Opiates Screen Negative, Urine Methadone Screen Negative, Ur Barbituates Screen Negative, Ur Phencyclidine Scrn Negative, Ur Amphetamines Screen Negative, U Benzodiazepines Scrn Positive H, Urine Cocaine Screen Negative, U Marijuana (THC) Screen Positive H 12/12/23 18:30 12/12/23 18:30 Orders (Tests/Meds): ED MEDICATIONS Generic Name Dose Route Start Last Admin Trade Name Freq PRN Reason Stop Dose Admin Vancomycin HCl 2,000 mg/ 250 mls @ 125 mls/hr 12/12/23 21:45 12/12/23 21:46 Sodium Chloride IV 12/12/23 23:44 125 mls/hr ONCE ONE Administration Miscellaneous 1 each 12/12/23 21:30 12/12/23 21:31 Vancomycin Consult Request NOTAPPLIC 01/11/24 21:29 1 each CONSULT PHARMACY TORRES Administration Discontinued Medications Generic Name Dose Route Start Last Admin Trade Name Freq PRN Reason Stop Dose Admin Lactated Ringer's 1,780 mls @ 890 mls/hr 12/12/23 19:23 12/12/23 19:25 Lactated Ringer's 1000 Ml Bag 30 ml/kg infuse over 2 hr (1780 ml) 12/12/23 21:22 890 mls/hr IV Administration .Q2H ONE Vancomycin HCl 2,000 mg/ 500 mls @ 250 mls/hr 12/12/23 21:45 Sodium Chloride IV 12/12/23 23:44 ONCE ONE ORDERS Category Date Time Status CT abdomen pelvis wo con Stat Cat Scan 12/12/23 19:[address] cervical spine wo con Stat Cat Scan 12/12/23 18:[address] head/brain wo con Stat Cat Scan 12/12/23 18:32 Completed CBC w/Auto Diff [Complete Blood Count Auto Diff] Stat Lab 12/12/23 18:30 Completed CMP [Comprehensive Metabolic Panel] Stat Lab 12/12/23 18:30 Completed Diarrhea 23 Panel, PCR Routine Lab 12/12/23 18:40 Ordered HIV (1&2) Antibody Rapid Stat Lab 12/12/23 18:30 Completed Hep C Ab with Reflex to RNA Stat Lab 12/12/23 18:30 Received Lactic Acid Stat Lab 12/12/23 18:30 Completed Magnesium Stat Lab 12/12/23 18:30 Completed Procalcitonin Stat Lab 12/12/23 18:30 Completed Rapid PCR Covid and Flu A/B Stat Lab 12/12/23 19:35 Completed Trop I [Troponin I] Stat Lab 12/12/23 18:30 Completed Troponin I Q3H Lab 12/12/23 21:45 Ordered Troponin I Q3H Lab 12/13/23 00:45 Ordered UA [Urinalysis and Microscopic] Stat Lab 12/12/23 Completed UDS [Drug Screen,Urine] Stat Lab 12/12/23 Completed Urinalysis and Microscopic Stat Lab 12/12/23 21:30 Completed VBG [Venous Blood Gas] Stat RT 12/12/23 20:27 Completed Medical Decision Narrative: In summary patient is a 62-year-old female who presents to the emergency department for evaluation of reported nausea vomiting diarrhea and altered mental status. Patient is hemodynamically stable upon arrival, afebrile. Physical exam is remarkable for morbidly obese 62-year-old female who is awake and interactive but is having difficulty communicating although she has no focal neurologic deficits has no slurred speech she has unable to answer questions completely although she tries. She has no evidence of aphasia.. Differential diagnosis includes altered mental status versus possible stroke versus infection etc. Initial workup will be conducted with CT scan of the head without contrast CTA of the head and neck, urinalysis, UDS, hematologic labs blood cultures.. Initial interventions considered however until we have a definitive workup and answer will avoid any mind altering substances that she is hemodynamically stable will hold IV fluid. Initial workup reviewed by me shows profound renal failure with a creatinine greater than 5 and a BUN greater than 100 and GFR less than 10, a white count of 15,000 with an absolute neutrophil count of 10, venous blood gas shows a pH 7.25, formal interpretation of her CT scan of her abdomen pelvis does not show any acute abnormality and imaging of her head does not show any evidence of acute process prior to radiology read. Given that I had in her discussion with hospital medicine who has recommended transfer to a tertiary care facility that has nephrology coverage thus I subsequently contacted [facility] transfer center to discuss patient management and patient has been graciously accepted to [facility] in care of Dr. Smith. <Germán Mg MD - Last Filed: 12/12/23 22:32> Vital Signs: 12/12/23 18:27 12/12/23 19:06 Temperature 98.6 F Temperature Source Oral Pulse Rate 69 Pulse Rate [Right Radial] 73 Respiratory Rate 17 Blood Pressure 118/71 Blood Pressure [Right Arm] 118/71 Blood Pressure Mean [Right Arm] 86 02 Sat by Pulse Oximetry 97 99 Oxygen Delivery Method Room Air Lab Data Lab Results 12/12/23 18:30: WBC 15.1 H, RBC 4.91, Hgb 13.0, Hct 39.4, MCV 80.2 L, MCH 26.5 L, MCHC 33.1, RDW 17.1, Plt Count 573 H, MPV 7.8, Neut % (Auto) 72.6, Lymph % (Auto) 21.9, Nelson % (Auto) 4.5, Eos % (Auto) 0.4, Baso % (Auto) 0.6, Neut # (Auto) 10.9 H, Lymph # (Auto) 3.3, Nelson # (Auto) 0.7, Eos # (Auto) 0.1, Baso # (Auto) 0.1, Total Counted 100, Neutrophils % (Manual) 73, Lymphocytes % (Manual) 21, Atypical Lymphs % 2.0, Monocytes % (Manual) 4, Platelet Estimate Moderate i, Hypochromasia 1+, Microcytosis 1+, Sodium 142, Potassium 3.7, Chloride 113 H, Carbon Dioxide 12 L, Anion Gap 20.7 H, BUN 123 H*, Creatinine 5.60 H, Estimated Creat Clear 10, Estimated GFR 8 L*, Est GFR ( Amer) 9 L*, Glucose 135 H, Lactate 1.3, Calcium 10.7 H, Magnesium 2.5 H, Total Bilirubin 1.2, AST 24, ALT 16, Alkaline Phosphatase 82, Troponin I 0.02, Total Protein 8.4 H, Albumin 4.9, Globulin 3.5 H, Albumin/Globulin Ratio 1.4, Procalcitonin 0.130, HIV 1&2 Antibody Rapid Nonreactive 12/12/23 19:35: SARS-CoV-2 (PCR) Not detected, Influenza A Untype (PCR) Not detected, Influenza Type B (PCR) Not detected 12/12/23 20:27: VBG pH 7.25 L, VBG pCO2 32.9 L, VBG pO2 29.5, VBG HCO3 14.1 L, VBG Total CO2 15.1 L, VBG O2 Saturation 56.7, VBG Base Excess -13.1 L, VBG Lactic Acid 2.7 H 12/12/23 21:30: Urine Color Yellow, Urine Appearance Clear, Urine pH 6.0, Ur Specific Blodgett 1.015, Urine Protein Negative, Urine Glucose (UA) Negative, Urine Ketones Negative, Urine Blood 2+ A, Urine Nitrate Negative, Urine Bilirubin 1+ A, Urine Urobilinogen 0.2, Ur Leukocyte Esterase Negative, Urine RBC 10-20, Urine WBC Occasional, Ur Squamous Epith Cells None, Urine Bacteria None 12/12/23 : Urine Color Yellow, Urine Appearance Cloudy, Urine pH 6.0, Ur Specific Blodgett 1.020, Urine Protein Negative, Urine Glucose (UA) Negative, Urine Ketones Negative, Urine Blood 3+ A, Urine Nitrate Negative, Urine Bilirubin 1+ A, Urine Urobilinogen 0.2, Ur Leukocyte Esterase Negative, Urine RBC 10-20, Urine WBC Occasional, Ur Squamous Epith Cells Occasional, Urine Bacteria None, Urine Opiates Screen Negative, Urine Methadone Screen Negative, Ur Barbituates Screen Negative, Ur Phencyclidine Scrn Negative, Ur Amphetamines Screen Negative, U Benzodiazepines Scrn Positive H, Urine Cocaine Screen Negative, U Marijuana (THC) Screen Positive H Orders (Tests/Meds): ED MEDICATIONS Generic Name Dose Route Start Last Admin Trade Name Freq PRN Reason Stop Dose Admin Vancomycin HCl 2,000 mg/ 250 mls @ 125 mls/hr 12/12/23 21:45 12/12/23 21:46 Sodium Chloride IV 12/12/23 23:44 125 mls/hr ONCE ONE Administration Miscellaneous 1 each 12/12/23 21:30 12/12/23 21:31 Vancomycin Consult Request NOTAPPLIC 01/11/24 21:29 1 each CONSULT PHARMACY TORRES Administration Discontinued Medications Generic Name Dose Route Start Last Admin Trade Name Cash PRN Reason Stop Dose Admin Lactated Ringer's 1,780 mls @ 890 mls/hr 12/12/23 19:23 12/12/23 19:25 Lactated Ringer's 1000 Ml Bag 30 ml/kg infuse over 2 hr (1780 ml) 12/12/23 21:22 890 mls/hr IV Administration .Q2H ONE Vancomycin HCl 2,000 mg/ 500 mls @ 250 mls/hr 12/12/23 21:45 Sodium Chloride IV 12/12/23 23:44 ONCE ONE ORDERS Category Date Time Status CT abdomen pelvis wo con Stat Cat Scan 12/12/23 19:[address] cervical spine wo con Stat Cat Scan 12/12/23 18:[address] head/brain wo con Stat Cat Scan 12/12/23 18:32 Completed CBC w/Auto Diff [Complete Blood Count Auto Diff] Stat Lab 12/12/23 18:30 Completed CMP [Comprehensive Metabolic Panel] Stat Lab 12/12/23 18:30 Completed Diarrhea 23 Panel, PCR Routine Lab 12/12/23 18:40 Ordered HIV (1&2) Antibody Rapid Stat Lab 12/12/23 18:30 Completed Hep C Ab with Reflex to RNA Stat Lab 12/12/23 18:30 Received Lactic Acid Stat Lab 12/12/23 18:30 Completed Magnesium Stat Lab 12/12/23 18:30 Completed Procalcitonin Stat Lab 12/12/23 18:30 Completed Rapid PCR Covid and Flu A/B Stat Lab 12/12/23 19:35 Completed Trop I [Troponin I] Stat Lab 12/12/23 18:30 Completed Troponin I Q3H Lab 12/12/23 21:45 Ordered Troponin I Q3H Lab 12/13/23 00:45 Ordered UA [Urinalysis and Microscopic] Stat Lab 12/12/23 Completed UDS [Drug Screen,Urine] Stat Lab 12/12/23 Completed Urinalysis and Microscopic Stat Lab 12/12/23 21:30 Completed VBG [Venous Blood Gas] Stat RT 12/12/23 20:27 Completed ECG Data Tracing #1: I reviewed this ECG and interpreted as documented below: (Junctional escape rhythm about 77 bpm with NJ 131, QRS 143, QTc 471. Left axis deviation with right bundle branch block morphology. Nondiagnostic with wandering baseline. No obvious acute ischemic change.) Medical Decision Narrative: In summary patient is a 62-year-old female who presents to the emergency department for evaluation of reported nausea vomiting diarrhea and altered mental status. Patient is hemodynamically stable upon arrival, afebrile. Physical exam is remarkable for morbidly obese 62-year-old female who is awake and interactive but is having difficulty communicating although she has no focal neurologic deficits has no slurred speech she has unable to answer questions completely although she tries. She has no evidence of aphasia.. Differential diagnosis includes altered mental status versus possible stroke versus infection etc. Initial workup will be conducted with CT scan of the head without contrast CTA of the head and neck, urinalysis, UDS, hematologic labs blood cultures.. Initial interventions considered however until we have a definitive workup and answer will avoid any mind altering substances that she is hemodynamically stable will hold IV fluid. Initial workup reviewed by me shows profound renal failure with a creatinine greater than 5 and a BUN greater than 100 and GFR less than 10, a white count of 15,000 with an absolute neutrophil count of 10, venous blood gas shows a pH 7.25, formal interpretation of her CT scan of her abdomen pelvis does not show any acute abnormality and imaging of her head does not show any evidence of acute process prior to radiology read. Given that I had in her discussion with hospital medicine who has recommended transfer to a tertiary care facility that has nephrology coverage thus I subsequently contacted [facility] [place] to discuss patient management and patient has been graciously accepted to [facility] in care of Dr. Smith. I was consulted by the ROMANA, and we discussed the complexity of the problems being addressed. I approved the treatment and management plan for this patient's care in the Emergency Department, thus performing a substantive portion of the medical decision making. Germán Mg MD Critical Care <MARIANO Can - Last Filed: 12/12/23 21:15> Critical Care Time Critical Care Time: No <Germán Mg MD - Last Filed: 12/12/23 22:32> Critical Care Time Critical Care Time: Yes (renal) Attestation: On 12/12/23, the high probability of a clinically significant, sudden or life threatening deterioration of the following system(s) required my full and direct attention, intervention and personal management. The time I documented below is in addition to time spent performing reported procedures but includes the following listed in this critical care notation. Total Time Total Critical Care Time: 60
--- NOTE | 2023-12-12 18:31 | CT_ITS ---
PROCEDURE INFORMATION: Exam: CT Cervical Spine Without Contrast Exam date and time: 12/12/2023 7:52 PM Age: 62 years old Clinical indication: Other: AMS; Additional info: Acute confusion TECHNIQUE: Imaging protocol: Computed tomography of the cervical spine without contrast. Radiation optimization: All CT scans at this facility use at least one of these dose optimization techniques: automated exposure control; mA and/or kV adjustment per patient size (includes targeted exams where dose is matched to clinical indication); or iterative reconstruction. COMPARISON: CT HEAD/BRAIN WO CON 12/12/2023 7:49 PM FINDINGS: Bones: No acute fracture. Normal alignment. Multilevel moderate to moderately severe degenerative disc and joint space changes most pronounced at C6/7. Vertebral body heights grossly preserved. Normal bony density. Lungs: Unremarkable. Soft tissues: Unremarkable. IMPRESSION: No acute findings. Degenerative changes.
--- NOTE | 2023-12-12 18:32 | CT_ITS ---
PROCEDURE INFORMATION: Exam: CT Head Without Contrast Exam date and time: 12/12/2023 7:49 PM Age: 62 years old Clinical indication: Altered mental status/memory loss; Additional info: Acute confusion TECHNIQUE: Imaging protocol: Computed tomography of the head without contrast. Radiation optimization: All CT scans at this facility use at least one of these dose optimization techniques: automated exposure control; mA and/or kV adjustment per patient size (includes targeted exams where dose is matched to clinical indication); or iterative reconstruction. COMPARISON: No relevant prior studies available. FINDINGS: Brain: No hemorrhage. Unremarkable white matter. No mass effect. Cerebral ventricles: No ventriculomegaly. Paranasal sinuses: Visualized sinuses are unremarkable. No fluid levels. Mastoid air cells: Visualized mastoid air cells are well aerated. Bones: Unremarkable. No acute fracture. Soft tissues: Unremarkable. IMPRESSION: No acute intracranial abnormality.
[2023-12-12 18:48] LABS: Albumin Level 4.9 g/dl (3.5-5.0); Basophils # 0.1 K/mm3 (0-0.2); Basophils % 0.6 % (0.1-2.0); Chloride 113 mmol/L (98-107); Eosinophils # 0.1 K/mm3 (0.0-0.4); Eosinophils % 0.4 % (0.1-12.0); Hematocrit 39.4 % (37.0-47.0); Lymphocytes # 3.3 K/mm3 (0.7-4.5); Lymphocytes % 21.9 % (10-50); Mean Corpuscular HGB Conc 33.1 g/dL (31.8-35.4); Mean Corpuscular Hemoglobin 26.5 pg (27.0-31.2); Mean Corpuscular Volume 80.2 fl (81-99); Mean Platelet Volume 7.8 fl (7.4-10.4); Monocytes # 0.7 K/mm3 (0.1-1.0); Monocytes % 4.5 % (1.7-9.3); Neutrophils # 10.9 K/mm3 (1.8-7.8); Neutrophils % 72.6 % (37.0-80.0); Platelet Count 573 K/mm3 (142-424); Potassium 3.7 mmoL/L (3.5-5.1); Red Blood Count 4.91 M/mm3 (4.20-5.40); Red Cell Distribution Width 17.1 % (11.5-17.5); Sodium 142 mmol/L (136-145); White Blood Count 15.1 K/mm3 (4.8-10.8)
[2023-12-12 18:49] LABS: MANUAL DIFFERENTIAL MANUAL DIFFERENTIAL (MANUAL DIFF)
[2023-12-12 18:50] LABS: Estimated Glomerular Filt Rate 8 ml/min (>60); GFR (African American) 9 ML/MIN (>60)
[2023-12-12 18:51] LABS: Alanine Aminotransferase 16 U/L (12-78); Albumin/Globulin Ratio 1.4 (1.1-1.8); Alkaline Phosphatase 82 U/L (38-126); Anion Gap 20.7 mEq/L (5-15); Aspartate Amino Transferase 24 U/L (14-36); Bilirubin,Total 1.2 mg/dl (0.2-1.3); Calcium 10.7 mg/dl (8.4-10.2); Carbon Dioxide 12 mmol/L (22.0-30.0); Globulin 3.5 g/dL (1.3-3.2); Glucose 135 mg/dl (74-100); Magnesium 2.5 mg/dl (1.6-2.3); Total Protein,Serum 8.4 g/dl (6.3-8.2)
[2023-12-12 18:52] LABS: Lactic Acid 1.3 mmol/L (0.7-2.1)
[2023-12-12 19:00] LABS: Blood, Urine 3+ (Negative); Color,Urine YELLOW (Yellow); Glucose,Urine (UA) Negative (Negative); Ketones,Urine Negative (Negative); Leukocyte Esterase,Urine Negative (Negative); Microscopic, Urine URINE MICROSCOPIC (MICROSCOPIC); Nitrate,Urine Negative (Negative); Protein,Urine Negative (Negative); Urobilinogen,Urine 0.2 EU/dl (0.2)
--- NOTE | 2023-12-12 19:00 | ECG_ITS ---
APPROVED REPORT Exam: Resting ECG HR:77 bpm ECG Measurements Heart Rate 77 AXES OK 131 P 268 QRSd 143 QRS -68 QT 439 T 116 QTc 471 Conclusion JUNCTIONAL RHYTHM LEFT AXIS DEVIATION [QRS AXIS < -30] RIGHT BUNDLE BRANCH BLOCK [120+ ms QRS DURATION, UPRIGHT V1, 40+ ms S IN I/aVL/V4/V5/V6] POSSIBLE LEFT VENTRICULAR HYPERTROPHY [VOLTAGE CRITERIA PLUS LAE OR QRS WIDENING] MARKED ST DEPRESSION, CONSIDER SUBENDOCARDIAL INJURY [0.2+ mV ST DEPRESSION] UNCONFIRMED REPORT Electronically signed by : LEONARDA COTA, 12/13/2023 06:55:51
[2023-12-12 19:03] LABS: Troponin I 0.02 ng/ml (0.00-0.034)
[2023-12-12 19:06] VITALS: BP 118/71; PULSE 69; O2SAT 99
[2023-12-12 19:12] LABS: Hypochromasia 1+; Lymphocytes % 21 % (10-50); Microcytosis 1+; Monocytes % 4 % (2-9); Neutrophils % 73 % (42-76); Platelet Estimate Moderate I; Total Cells Counted 100
[2023-12-12 19:13] LABS: Barbiturates Screen,Urine Negative ng/ml (<200)
[2023-12-12 19:14] LABS: Amphetamine/Metha Screen,Urine Negative ng/ml (<1000); Benzodiazepines Screen,Urine Positive ng/ml (<200)
[2023-12-12 19:15] LABS: Cocaine Screen,Urine Negative ng/ml (<300); Methadone Screen,Urine Negative ng/ml (<300)
[2023-12-12 19:16] LABS: Cannabinoid Screen,Urine Positive ng/ml (<50)
[2023-12-12 19:17] LABS: Opiate Screen,Urine Negative ng/ml (<300); Phencyclidine Screen,Urine Negative ng/ml (<25)
[2023-12-12 19:22] LABS: Creatinine Clearance Estimated 10 mL/min (50-200)
--- NOTE | 2023-12-12 19:24 | PC.NURSE ---
Dr. Mg notified of critical BUN & creatinine
[2023-12-12] MEDS: LACTATED RINGERS 1000ML 1,780 ML 890 ML IV (19:25)
--- NOTE | 2023-12-12 19:26 | PC.NURSE ---
Due to the critical creatinine, Dr. Mg states to cancel angio ct studies and only do non-contrast head/neck. Amna in radiology notified of this.
--- NOTE | 2023-12-12 19:39 | CT_ITS ---
PROCEDURE INFORMATION: Exam: CT Abdomen And Pelvis Without Contrast Exam date and time: 12/12/2023 7:54 PM Age: 62 years old Clinical indication: Other: Altered mental status, uremia TECHNIQUE: Imaging protocol: Computed tomography of the abdomen and pelvis without contrast. Radiation optimization: All CT scans at this facility use at least one of these dose optimization techniques: automated exposure control; mA and/or kV adjustment per patient size (includes targeted exams where dose is matched to clinical indication); or iterative reconstruction. COMPARISON: 1. CT ANGIO CHEST 01/15/2023 4:35 PM 2. CR XR CHEST PORTABLE 01/15/2023 3:58 PM FINDINGS: Liver: The hepatic dome is excluded. Gallbladder and biliary ducts: The patient is status post cholecystectomy. Pancreas: Normal. Spleen: There are multiple calcifications in the spleen most likely reflects small granulomas. Adrenal glands: The adrenal glands appear normal. Kidneys and ureters: Nonobstructing right-sided renal calculi. Punctate nonobstructing left lower pole intrarenal calculi. Stomach and bowel: There is a duodenal diverticulum. Appendix: No evidence of appendicitis. Intraperitoneal space: Unremarkable. Vasculature: The abdominal aorta and its major branches appear normal without evidence of aneurysm or stenosis. There are pelvic phleboliths. Lymph nodes: No lymphadenopathy. Urinary bladder: There is moderate distention of the urinary bladder. Reproductive: The patient has undergone prior hysterectomy. Bones/joints: The visualized osseous structures of the abdomen and pelvis appear normal for patient age. Soft tissues: There is a small fat containing umbilical hernia. There is a right periumbilical fat containing hernia. IMPRESSION: No acute inflammatory or obstructive process is identified. Incidental findings are described within the findings section.
[2023-12-12 19:41] LABS: Coronavirus 19, PCR Not Detected (NotDetected); Influenza A, PCR Not Detected (NotDetected); Influenza B, PCR Not Detected (NotDetected)
[2023-12-12 19:44] LABS: Blood Urea Nitrogen 123 mg/dl (7-17)
--- NOTE | 2023-12-12 19:44 | PC.NURSE ---
Kala in lab called for a critical, gave CRYSTAL Caballero report
[2023-12-12 19:54] LABS: Appearance,Urine Cloudy (Clear); Bilirubin,Urine 1+ (Negative); WBC,Urine Occasional #/hpf (0-3)
[2023-12-12 19:55] LABS: Squamous Epithelial Cell,Urine Occasional #/hpf (0-5)
--- NOTE | 2023-12-12 20:36 | PC.NURSE ---
Called about a transfer, they are supposed to be giving us a call back
[2023-12-12 20:44] LABS: VBG Base Excess -13.1 mmol/L (-2.4-2.3); VBG HCO3 14.1 mmol/L (23-30); VBG Oxygen Saturation 56.7 % (50-70); VBG PCO2 32.9 mmol/L (35-51); VBG PH 7.25 mmol/L (7.31-7.41); VBG PO2 29.5 mmol/L (28-40); VBG Total CO2 15.1 mmol/L (23-27)
[2023-12-12 20:45] LABS: Lactate Venous 2.7 mmol/L (0.4-2.0)
[2023-12-12] MEDS: VANCOMYCIN CONSULT REQUEST 1 EACH NOTAPPLIC (21:31)
--- NOTE | 2023-12-12 21:31 | PC.NURSE ---
Consulted Kenny for vanc dosing; stated to give 2 gram initial dose and that they will enter into MAR.
[2023-12-12 21:39] LABS: Microscopic, Urine URINE MICROSCOPIC (MICROSCOPIC)
--- NOTE | 2023-12-12 21:40 | PC.NURSE ---
Consulted Kenny about changing sodium chloride that vanc is to be mixed in to a 250mL bag. States there is a built in dosage with 250mL 0.9%. Kenny is changing order.
[2023-12-12] MEDS: VANCOMYCIN HCL 2,000 MG in 0.9 % SODIUM CHLORIDE 250 ML 125 MG IV (21:46)
[2023-12-12 22:00] LABS: Appearance,Urine CLEAR (Clear); Blood, Urine 2+ (Negative); Color,Urine YELLOW (Yellow); Glucose,Urine (UA) Negative (Negative); Ketones,Urine Negative (Negative); Leukocyte Esterase,Urine Negative (Negative); Nitrate,Urine Negative (Negative); Protein,Urine Negative (Negative); Specific Gravity, Urine 1.015 (1.005-1.030); Urobilinogen,Urine 0.2 EU/dl (0.2)
[2023-12-12 22:03] LABS: Bilirubin,Urine 1+ (Negative)
[2023-12-12 22:12] LABS: WBC,Urine Occasional #/hpf (0-3)
[2023-12-12 22:19] LABS: HIV (1&2) Antibody Rapid NONREACTIVE (NONREACTIVE)
[2023-12-12 23:55] VITALS: BP 127/68; PULSE 70; RESP 17; TEMP 36.5; O2SAT 98
[2023-12-13 00:46] LABS: Reflex Lactic Add Lactic Reflex
[2023-12-15 21:17] LABS: HCV Ab Reactive (Non Reactive)
== END 2023-12-13 00:08 | disposition short-term general hospital (02) ==
PROVIDERS: Emergency Medicine; Physician Assistant; Emergency Provider Emergency Medicine; PCP Family Medicine
DX: N17.9 Acute kidney failure, unspecified (principal); R11.2 Nausea with vomiting, unspecified; R19.7 Diarrhea, unspecified; R41.82 Altered mental status, unspecified; G92.8 Other toxic encephalopathy
CPT/HCPCS: 51702; 70450; 72125; 74176; 80053; 80307; 81001; 82803; 83605; 83735; 84145; 84484; 85007; 85025; 86803; 87389; 87636; 93005; 96361; 96374; 99291; J3370; J7120

== ENCOUNTER 2024-01-27 12:20 | Outpatient (CLI) | payer MEDICARE, MEDICAID, SELFPAY ==
[2024-01-27 16:43] LABS: Basophils # 0.1 K/mm3 (0-0.2); Basophils % 0.6 % (0.1-2.0); Eosinophils # 0.1 K/mm3 (0.0-0.4); Eosinophils % 1.3 % (0.1-12.0); Hematocrit 38.8 % (37.0-47.0); Hemoglobin 12.6 g/dL (12.2-16.2); Lymphocytes # 2.3 K/mm3 (0.7-4.5); Lymphocytes % 23.1 % (10-50); Mean Corpuscular HGB Conc 32.6 g/dL (31.8-35.4); Mean Corpuscular Hemoglobin 27.8 pg (27.0-31.2); Mean Corpuscular Volume 85.2 fl (81-99); Mean Platelet Volume 8.6 fl (7.4-10.4); Monocytes # 0.5 K/mm3 (0.1-1.0); Monocytes % 5.3 % (1.7-9.3); Neutrophils # 7.1 K/mm3 (1.8-7.8); Neutrophils % 69.8 % (37.0-80.0); Platelet Count 419 K/mm3 (142-424); Red Blood Count 4.55 M/mm3 (4.20-5.40); Red Cell Distribution Width 15.9 % (11.5-17.5); White Blood Count 10.1 K/mm3 (4.8-10.8)
[2024-01-27 17:01] LABS: Alanine Aminotransferase 31 U/L (12-78); Albumin Level 4.3 g/dl (3.5-5.0); Albumin/Globulin Ratio 1.6 (1.1-1.8); Alkaline Phosphatase 63 U/L (38-126); Anion Gap 17.1 mEq/L (5-15); Aspartate Amino Transferase 44 U/L (14-36); Bilirubin,Total 0.8 mg/dl (0.2-1.3); Blood Urea Nitrogen 14 mg/dl (7-17); Calcium 10.2 mg/dl (8.4-10.2); Carbon Dioxide 22 mmol/L (22.0-30.0); Chloride 106 mmol/L (98-107); Estimated Glomerular Filt Rate 63 ml/min (>60); GFR (African American) 76 ML/MIN (>60); Globulin 2.7 g/dL (1.3-3.2); Glucose 94 mg/dl (74-100); Potassium 4.1 mmoL/L (3.5-5.1); Sodium 141 mmol/L (136-145)
[2024-01-27 17:17] LABS: T4 (Thyroxine) 16.1 ug/dl (5.53-11.0)
[2024-01-27 17:30] LABS: Thyroid Stimulating Hormone < 0.02 uIU/mL (0.465-4.68)
[2024-01-28 08:22] LABS: Lithium (Eskalith(R)) 0.3 mmol/L (0.5-1.2)
== END 2024-01-27 23:59 | disposition home or self-care (01) ==
LOC: LAB.DROPOF 01-28 08:12
PROVIDERS: PCP Family Medicine; Visit Provider Family Medicine
DX: I10 Essential (primary) hypertension (principal); E13.9 Other specified diabetes mellitus without complications; Z79.899 Other long term (current) drug therapy; E03.9 Hypothyroidism, unspecified
CPT/HCPCS: 80053; 80178; 83036; 84436; 84443; 85025

== ENCOUNTER 2024-02-02 18:35 | Outpatient (CLI) | payer MEDICARE, MEDICAID, SELFPAY ==
[2024-02-02 20:39] LABS: Creatinine,Urine Random 131 mg/dL (Not Estab.); Microalbumin < 6.000 mg/L (0-16.7)
== END 2024-02-02 23:59 | disposition home or self-care (01) ==
PROVIDERS: PCP Family Medicine; Visit Provider Family Medicine
DX: E13.9 Other specified diabetes mellitus without complications (principal)
CPT/HCPCS: 82043; 82570

== ENCOUNTER 2024-04-03 12:02 | Outpatient (CLI) | payer MEDICARE, MEDICAID, SELFPAY ==
--- NOTE | 2024-04-03 12:06 | MM_ITS ---
PROCEDURE INFORMATION: Exam: MG Bilateral Screening 3D Mammography Exam date and time: 04/03/2024 12:22 PM Age: 63 years old Clinical indication: Screening mammogram TECHNIQUE: Imaging protocol: Bilateral Screening tomosynthesis and 2D mammography including computer-aided detection (CAD) when performed. COMPARISON: 1. MG MM DIG MAMM DX UNILAT LT CAD 01/18/2023 1:45 PM 2. MG MM DIG SCREENING MAMM BI W/CAD 12/09/2022 12:54 PM 3. MG MMR DIAG RT CONE COMP 11/12/2011 2:06 PM FINDINGS: MAMMOGRAPHY: Breast composition: The breasts are almost entirely fatty. Mass: None. Architectural distortion: No new or suspicious architectural distortion. Calcifications: No new or suspicious calcifications are present Asymmetric density: No new or suspicious asymmetric density is present Skin thickening: None. Axillary adenopathy: None. IMPRESSION: No mammographic evidence of malignancy. Recommend annual screening mammography unless otherwise clinically indicated. ASSESSMENT: BI-RADS category 1: Negative.
== END 2024-04-03 23:59 | disposition home or self-care (01) ==
LOC: RAD 12:03
PROVIDERS: PCP Family Medicine; Visit Provider Family Medicine
DX: Z12.31 Encounter for screening mammogram for malignant neoplasm of breast (principal)
CPT/HCPCS: 77063; 77067

== ENCOUNTER 2024-04-14 13:25 | Outpatient (CLI) | payer MEDICARE, MEDICAID, SELFPAY ==
--- NOTE | 2024-04-14 13:43 | CT_ITS ---
FINAL REPORT TECHNIQUE: Axial imaging of the chest is obtained after the administration of contrast. 3-D MIP reformatted images were also obtained and reviewed per PE protocol. CLINICAL HISTORY: Ascending aortic aneurysm, follow-up COMPARISON: 12/26/2022 FINDINGS: CTA CHEST There is a stable 4.4 cm ascending aortic aneurysm. On review measurement at the same location on the prior exam, it is unchanged. There is no aortic dissection. Heart size is normal. There is no mediastinal, hilar, or axillary lymphadenopathy. The lungs are clear. Again seen is a pericardial cyst in the region of the left main pulmonary artery. There is a new, trace, left pleural effusion. There is no right pleural effusion or pericardial effusion. There is left lower lobe atelectasis. The lungs are otherwise clear. Limited evaluation of the upper abdomen is without acute abnormality. No acute osseous abnormality. IMPRESSION: Stable ascending aortic aneurysm. New, very small, left pleural effusion. Stable pericardial cyst. Reviewed, Interpreted and Dictated by Latisha Last MD Transcribed by Toyin Panchal Authenticated and [facility]
[2024-04-14 14:20] LABS: Basophils # 0.1 K/mm3 (0-0.2); Basophils % 0.5 % (0.1-2.0); Eosinophils # 0.2 K/mm3 (0.0-0.4); Eosinophils % 1.6 % (0.1-12.0); Hematocrit 39.9 % (37.0-47.0); Hemoglobin 12.5 g/dL (12.2-16.2); Lymphocytes # 2.5 K/mm3 (0.7-4.5); Lymphocytes % 23.3 % (10-50); Mean Corpuscular HGB Conc 31.3 g/dL (31.8-35.4); Mean Corpuscular Hemoglobin 25.5 pg (27.0-31.2); Mean Corpuscular Volume 81.4 fl (81-99); Mean Platelet Volume 10.3 fl (7.4-10.4); Monocytes # 0.6 K/mm3 (0.1-1.0); Monocytes % 5.3 % (1.7-9.3); Neutrophils # 7.3 K/mm3 (1.8-7.8); Neutrophils % 68.8 % (37.0-80.0); Platelet Count 370 K/mm3 (142-424); White Blood Count 10.6 K/mm3 (4.8-10.8)
[2024-04-14 14:33] LABS: Albumin Level 4.4 g/dl (3.5-5.0); Chloride 107 mmol/L (98-107); Sodium 141 mmol/L (136-145)
[2024-04-14 14:34] LABS: Potassium 4.5 mmoL/L (3.5-5.1)
[2024-04-14 14:36] LABS: Alanine Aminotransferase 15 U/L (12-78); Alkaline Phosphatase 68 U/L (38-126); Anion Gap 12.5 mEq/L (5-15); Aspartate Amino Transferase 22 U/L (14-36); Bilirubin,Indirect 0.9 mg/dL (0.0-0.9); Bilirubin,Total 0.9 mg/dl (0.2-1.3); Bilirubin,Unconjugated 0.9 mg/dL (0.0-1.1); Blood Urea Nitrogen 13 mg/dl (7-17); Carbon Dioxide 26 mmol/L (22.0-30.0); Cholesterol 198 mg/dl (140-200); Estimated Glomerular Filt Rate 72 ml/min (>60); GFR (African American) 87 ML/MIN (>60); Glucose 103 mg/dl (74-100); Total Protein,Serum 6.9 g/dl (6.3-8.2); Triglycerides 136 mg/dl (30-150); VLDL Cholesterol 27 mg/dL (0-40)
[2024-04-14 14:37] LABS: Chol/HDL Ratio 4.7 (1-3.5); HDL Cholesterol 42 mg/dl (40-60); Magnesium 1.6 mg/dl (1.6-2.3)
[2024-04-14 14:51] LABS: Direct LDL Cholesterol 120.05 mg/dL (100-129)
[2024-04-14 14:53] LABS: Free T4 (Free Thyroxine) 2.36 ng/dl (0.78-2.19)
[2024-04-14 15:08] LABS: Thyroid Stimulating Hormone < 0.02 uIU/mL (0.465-4.68)
[2024-04-14] MEDS: SODIUM CHLORIDE 0.9% 10ML SYR (RAD ONLY) 10 ML IV (15:11)
[2024-04-14] MEDS: 0.9 % SODIUM CHLORIDE 50 ML VIAL IV (15:11)
[2024-04-14] MEDS: IOPAMIDOL-370 (76%);100ML BOTTLE 75 ML IV (15:11)
== END 2024-04-14 23:59 | disposition home or self-care (01) ==
LOC: RAD 13:26
PROVIDERS: PCP Family Medicine; Visit Provider Nurse Practitioner Family
DX: R94.30 Abnormal result of cardiovascular function study, unspecified (principal); E06.3 Autoimmune thyroiditis; I77.810 Thoracic aortic ectasia; E13.9 Other specified diabetes mellitus without complications; E03.9 Hypothyroidism, unspecified
CPT/HCPCS: 36415; 71275; 80048; 80061; 80076; 83735; 84439; 84443; 85025; Q9967

== ENCOUNTER 2024-06-28 13:53 | Outpatient (CLI) | payer MEDICARE, MEDICAID, SELFPAY ==
[2024-06-28 17:37] LABS: Anion Gap 10.5 mEq/L (5-15); Blood Urea Nitrogen 16 mg/dl (7-17); Calcium 9.8 mg/dl (8.4-10.2); Carbon Dioxide 29 mmol/L (22.0-30.0); Chloride 106 mmol/L (98-107); Estimated Glomerular Filt Rate 100 ml/min (>60); GFR (African American) 121 ML/MIN (>60); Glucose 97 mg/dl (74-100); Potassium 4.5 mmoL/L (3.5-5.1); Sodium 141 mmol/L (136-145)
[2024-06-28 18:05] LABS: Thyroid Stimulating Hormone 0.02 uIU/mL (0.465-4.68)
[2024-06-30 08:13] LABS: Lithium (Eskalith(R)) <0.1 mmol/L (0.5-1.2)
== END 2024-06-28 23:59 | disposition home or self-care (01) ==
LOC: LAB.DROPOF 06-29 08:53
PROVIDERS: PCP Family Medicine; Visit Provider Family Medicine
DX: E03.9 Hypothyroidism, unspecified (principal); E13.9 Other specified diabetes mellitus without complications; Z79.899 Other long term (current) drug therapy
CPT/HCPCS: 80048; 80178; 84443

== ENCOUNTER 2024-07-18 13:41 | Outpatient (CLI) | payer MEDICARE, MEDICAID, SELFPAY ==
--- NOTE | 2024-07-18 13:45 | XR_ITS ---
FINAL REPORT CLINICAL HISTORY: right shoulder pain COMPARISON: None FINDINGS: RIGHT SHOULDER 2 nonstandard views demonstrate no acute fracture or dislocation. There are mild hypertrophic changes of the glenohumeral joint. The acromioclavicular joint is suboptimally visualized but there appear to be mild hypertrophic changes. IMPRESSION: Mild degenerative changes without acute process. Reviewed, Interpreted and Dictated by Marcos Esparza MD Transcribed by Johana Carter Authenticated and . [facility]
--- NOTE | 2024-07-18 13:45 | XR_ITS ---
FINAL REPORT CLINICAL HISTORY: left shoulder pain COMPARISON: None FINDINGS: LEFT SHOULDER 2 nonstandard views of the left shoulder were obtained. There are moderate hypertrophic changes of the inferior margin of the glenohumeral joint. There appears to be an intra-articular loose body measuring up to 1.5 cm of the superior margin of the glenohumeral joint. [id number] hypertrophic changes are noted of the acromioclavicular joint. IMPRESSION: No acute bony abnormality. Probable loose body as above. This could be better evaluated with CT or MRI. Reviewed, Interpreted and Dictated by Marcos Esparza MD Transcribed by Johana Carter Authenticated and . [facility]
== END 2024-07-18 23:59 | disposition home or self-care (01) ==
LOC: RAD 13:42
PROVIDERS: PCP Family Medicine; Visit Provider Physician Assistant
DX: M19.011 Primary osteoarthritis, right shoulder (principal); R93.6 Abnormal findings on diagnostic imaging of limbs; M25.512 Pain in left shoulder
CPT/HCPCS: 73030

== ENCOUNTER 2024-08-22 14:44 | Outpatient (CLI) | payer MEDICARE, MEDICAID, SELFPAY ==
--- NOTE | 2024-08-22 14:47 | XR_ITS ---
PROCEDURE INFORMATION: Exam: XR Left Knee Exam date and time: 08/22/2024 3:19 PM Age: 63 years old Clinical indication: Pain; Knee; Left; Additional info: Knee pain TECHNIQUE: Imaging protocol: Radiologic exam of the left knee. Views: 3 views. COMPARISON: No relevant prior studies available. FINDINGS: Bones/joints: [id number] degenerative changes of the medial and patellofemoral compartments. Mild degenerative changes of the lateral compartment. No acute fracture identified. Soft tissues: Normal. IMPRESSION: No acute abnormality.
--- NOTE | 2024-08-22 14:47 | XR_ITS ---
PROCEDURE INFORMATION: Exam: XR Right Knee Exam date and time: 08/22/2024 3:19 PM Age: 63 years old Clinical indication: Pain; Knee; Right; Additional info: Knee pain TECHNIQUE: Imaging protocol: Radiologic exam of the right knee. Views: 3 views. COMPARISON: No relevant prior studies available. FINDINGS: Bones/joints: [id number]-[id number] degenerative changes of the medial patellofemoral compartments. Mild degenerative change of the lateral compartment. No acute fracture identified. Soft tissues: Normal. Other findings: A possible osteo cartilaginous loose body noted posteriorly. IMPRESSION: No acute abnormality. DJD and possible loose body.
--- OUTSIDE RECORDS SUMMARY | 2024-08-22 14:47 | XMS_ITS ---
Laboratory report Created on: July 04, 2024 BING SALCEDO : 1960 Sex: Female Author Organization Unknown PROBLEMS Problems List Code Description RESULTS Laboratory Orders Date Order Code Test 2024-06-28 [id number] LITHIUM (ESKALIT H(R)), SERUM Laboratory Results Date LOINC Test Value Unit Reference Range Interpre tation 2024-06-28 [id number] LITHIUM (ESKALIT H(R)), SERUM <0.1 MMOL/L 0.5-1.2 L
--- OUTSIDE RECORDS SUMMARY | 2024-08-22 14:47 | XMS_ITS | Clinical Summary ---
Author Organization Healthcare Address [address] [place] [address] Care Team Providers Care Relations Manager Name Role Phone Robel Stokes MD Primary Care Provider Evelina vailable Allergies Active Allergy Reactions Criticality Noted Date Comments Sumatriptan Anaphylaxis High 12/12/2023 Tetracyclines & Related Rash Low 12/12/2023 Medications acetaminophen (Tylenol) 325 MG tablet Take 2 tablets (650 mg) by mouth 2 (two) times a day if needed for headaches or pain. Active albuterol 108 (90 Base) MCG/ACT inhaler Inhale 2 puffs every 6 (six) hours if needed for wheezing. Active gabapentin (Neurontin) 100 MG capsule Take 2 capsules (200 mg) by mouth every night. Active levothyroxine (Synthroid, Unithroid) 300 MCG tablet Take 1 tablet (300 mcg) by mouth 1 (one) time each day before breakfast. Active Semaglutide,0.2 5 or 0.5MG/DOS, 2 MG/3ML solution pen-injector Inject 0.5 mg under the skin 1 (one) time per week. Active vilazodone (Viibryd) 20 MG tablet Take 1 tablet (20 mg) by mouth 1 (one) time each day. Active ALPRAZolam (Xanax) 1 MG tablet Take 1 tablet (1 mg) by mouth every night. 4 Active NIFEdipine XL (Adalat CC) 60 MG 24 hr tablet Take 1 tablet (60 mg) by mouth 1 (one) time each day. Do not crush, chew, or split. 30 tablet 4 Active lithium 300 MG tablet Take 1 tablet (300 mg) by mouth 1 (one) time each day. 30 tablet Active topiramate (Topamax) 50 MG tablet Take 2 tablets (100 mg) by mouth every night. Active hydrOXYzine pamoate (Vistaril) 50 MG capsule Take 1 capsule (50 mg) by mouth every night. Active Active Problems Problem Noted Date Diagnosed Date Class III obesity with body mass index (BMI) of 40.0 or higher 12/20/2023 Asthma 12/13/2023 CKD (chronic kidney disease) 12/13/2023 HTN (hypertension) 12/13/2023 HLD (hyperlipidemia) 12/13/2023 Type 2 diabetes mellitus wit h diabetic neuropathy, without long-term current use of insulin 12/13/2023 Bipolar disease, chronic 12/13/2023 Hypothyroidism 12/13/2023 Resolved Problems Problem Noted Date Diagnosed Date Resolved Date Acute renal failure, unspeci fied acute renal failure type 12/13/2023 12/22/2023 Social History Tobacco Use Types Packs/Day Years Used Date Smoking Tobacco: Never Smokeless Tobacco: Never Tobacco Cessation:Counseling Given: Not Answered Alcohol Use Standard Drinks/Week Comments Never 0 (1 standard drink = 0.6 oz pur e alcohol) CAGE ASSESSMENT Answer Date Recorded Cage unable to access Not on file 12/14/2023 Cage max number of drinks Not on file 2023 Cage Beverages a week Not on file 12/14/2023 Have you ever felt you should CUT down on your d rinking? 0 12/14/2023 Have you been ANNOYED by people criticizing your drinking? 0 12/14/2023 Have you felt GUILTY about your drinking? 0 12/14/2023 Have you had a drink first t jacques in the morning (EYE-BROADCAST MAINTENANCE ENGINEER) to steady your nerves or to get rid of a hangover? 0 12/14/2023 CAGE Questionnaire Score 0 024 Comments Unknown Sex and Gender Information Value Date Recorded Sex Assigned at Not on file Legal Sex Female 7:45 PM EDT Gender Identity Not on file Sexual Orientation Not on file Last Filed Vital Signs Vital Sign Reading Time Taken Comments Blood Pressure 131/84 12/22/2023 8:19 AM EDT Pulse 77 12/22/2023 8:19 AM EDT Temperature 37.1 C (98.7 F) 12/22/2023 8:19 AM EDT Respiratory Rate 17 12/21/2023 11:31 PM EDT Oxygen Saturation 95% 12/22/2023 8:19 AM EDT Inhaled Oxygen Concentration - - Weight 132 kg (292 lb 1.8 oz) 12/14/2023 8:00 PM EDT Height 157.5 cm (5' 2 ) 12/14/2023 8:00 PM EDT Body Mass Index 53.43 12/14/2023 8:00 PM EDT Plan of Treatment Health Maintenance Due Date Last Done Comments [facility]-Bone Density Scan 1960 [facility]-Depression Screening 1960 [facility]-Medicare Annual Wellness (AWV) 1960 [facility]-/Child/Adol SDOH Screenings 1960 [id number] Vaccine (#1) 12/19/1963 Diabetes: Dental Exam 1968 [facility]- SDOH Screenings 1976 [facility]-Adult SDOH Screenings 1976 [facility]-DTaP,Tdap,and Td Vaccine s (1 - Tdap) 1977 [facility]-Pneumococcal Vaccine: 50 + Years (1 of 2 - PCV) 1977 CT Colonography 12/19/2003 Colonoscopy 12/19/2003 FIT-DNA 12/19/2003 FIT 12/19/2003 FOBT 12/19/2003 Sigmoidoscopy 12/19/2003 [facility]-Colorectal Cancer Screening 12/19/2003 [facility]-Breast Cancer Screening 2008 [facility]-Zoster Vaccines (1 of 2) 2008 [facility]-RSV Vaccine: 60+ Years o r (1 - Risk 60-74 years 1-dose series) 2018 [facility]-Diabetes: Hemoglobin A1C 06/11/2024 12/13/2023 [facility]-Influenza Vaccine (Seaso n Ended) 2024 [facility]-Obesity Intervention Completed 12/12/2023 [facility]-Hepatitis C Screening Completed 12/13/2023 HPV Vaccines Aged Out No longer eligi ble based on patient's age to complete this topic [facility]-HIB Vaccines Aged Out No longer e ligible based on patient's age to complete this topic [facility]-Hepatitis A Vaccines Aged Out No longer eligible based on patient's age to complete this topic [facility]-IPV Vaccines Aged Out No longer e ligible based on patient's age to complete this topic [facility]-Rotavirus Vaccines Aged Out No lo nger eligible based on patient's age to complete this topic Procedures Procedure Name Priority Date/Time Associated Diagnosis Comments HEPATITIS C ANTIBODY - ED W/REFLEX TO HCV QUANT PCR STAT 12/13/2023 1:24 AM EDT HEMOGLOBIN A1C Add-On 12/13/2023 1:24 AM EDT from Last 3 Months or Most Recently Relevant to Health Maintenance Results * (ABNORMAL) Hepatitis C Antibody - ED (12/13/2023 1:24 AM EDT) Hepatitis C Antibody Positive(A ) Negative 12/13/2023 2:29 AM EDT [facility] Blood Venous blood specimen / Unknown Venipuncture / Unknown 12/13/2023 1:24 AM EDT 12/13/2023 1:48 AM EDT us Yandel Oconnor MD LAB BLOOD ORDERABLES Final Result [facility] [address] [place] [address] * Hemoglobin A1c (12/13/2023 1:24 AM EDT) Hemoglobin A1c 5.5 <5.7 % 12/13/2023 6:49 AM EDT [facility] Blood Venous blood specimen / Unknown Venipuncture / Unknown 12/13/2023 1:24 AM EDT 12/13/2023 1:28 AM EDT Narrative [facility] - 12/13/2023 6:49 AM EDT HA1C Interpretive Data: Diagnosis of Diabetes: Diabetic > or = 6.5% Pre-diabetic 5.7 to 6.4% Non-diabetic < or = 5.6% Glycemic Targets for Type I and Type II Diabetics: Non- Adults <7.0% Adults <6.0% Children and Adolescents <7.5% Source: [place] [employer]. Standards of medical care in diabetes,2017. Diabetes Care.2017:40 (suppl 1):S1-S135. HbA1c assay performed by an ion-exchange chromatography method that is certified traceable to the DCCT. Luis Burrows MILLWRIGHT, DNP LAB BLOOD ORDERABLES Fi nal Result [facility] [address] [place] [address] from Last 3 Months or Most Recently Relevant to Health Maintenance Insurance [place]ICAID-[place] HUMANA MEDICARE Advance Directives * Full Code (Latest Code Status on File) Date Activated Date Inactivated Comments 12/13/2023 3:56 AM 12/22/2023 4:56 PM Question Answer Comments Patient has decision-making capacity? Yes Care Teams Relations Manager Relationship Specialty Start Date End Date Robel Stokes MD PCP - General Family Medicine 12/14/23
--- OUTSIDE RECORDS SUMMARY | 2024-08-22 14:47 | XMS_ITS | Encounter Summary ---
Author Organization Healthcare Address [address] [place] [address] Care Team Providers Care Firebreak Cutter Name Role Phone Pcp, No Primary Care Provider Robel Bobo MD Primary Care Provider Evelina bradenilable Humera Morales LPN Unavailable UnavailAsmita Gonzalez JEWELRY ENAMELER Unavailable Unavailable Encounter Details Date Type Department Care Team (Late st Contact Info) Description 12/13/2023 [facility] Outreach [facility] [address] [place] [address] Raz Gomez Social History Tobacco Use Types Packs/Day Years Used Date Smoking Tobacco: Never Smokeless Tobacco: Never Alcohol Use Standard Drinks/Week Comments Never 0 [...] drink first t jacques in the morning (EYE-BOOKIE) to steady your nerves or to get rid of a hangover? 0 12/14/2023 CAGE Questionnaire Score 0 024 Comments Unknown Sex and Gender Information Value Date Recorded Sex Assigned at Not on file Legal Sex Female 7:45 PM EDT Gender Identity Not on file Sexual Orientation Not on file documented as of this encounter Functional Status * Calculated C-SSRS Risk Score (Lifetime/Recent) Answer Date of Assessment Author No Risk Indicated 12/22/2023 8:00 AM EDT Lisha White, RN * Question Answer Date of Assessment Author 1. Wish to be (Past 1 Month) No 024 8:00 AM EDT Lisha White, RN 2. Non-Specific Active Suici makayla Thoughts (Past 1 Month) No 12/22/2023 8:00 AM EDT Lisha White, RN 6. Suicidal Behavior (Lifetime) No 8:00 AM EDT Lisha White, RN documented as of this encounter Plan of Treatment Not on file documented as of this encounter Visit Diagnoses Not on filedocumented in this encounter Additional Health Concerns Infection Onset Date Last Indicated Resolved Time Gastrointestinal Rule-Out 12/13/2023 12/13/2023 11:11 PM EDT C. difficile Rule-Out 12/15/2023 12/16/20232023 3:05 AM EDT Assessment Noted Time A Body Mass Index follow-up plan has been documented for the patient 12/22/2023 12:59 PM EDT documented as of this encounter Care Teams Firebreak Cutter Relationship Specialty Start Date End Date Pcp, No [address] [place] [address] PCP - General Family Medicine 12/13/23 12/13/23 Robel Stokes MD [address] [place] [address] PCP - General Family Medicine 12/14/23 Humera Morales LPN [facility] TCM Nurse Internal Medicine 12/23/23 01/22/24 Asmita Montalvo, [place] [address] Instant Potato Processing Supervisor Pre Press Proofer 12/13/23 12/13/23 documented as of this encounter
--- OUTSIDE RECORDS SUMMARY | 2024-08-22 14:47 | XMS_ITS ---
Author Organization Unknown TREATMENT PLAN Planned Care Start Date Provider Encounter for Check-up [id number] [facility]
== END 2024-08-22 23:59 | disposition home or self-care (01) ==
LOC: RAD 14:45
PROVIDERS: PCP Family Medicine; Visit Provider Physician Assistant
DX: M17.11 Unilateral primary osteoarthritis, right knee (principal); M25.562 Pain in left knee
CPT/HCPCS: 73562

== ENCOUNTER 2024-09-04 15:10 | Outpatient (CLI) | payer MEDICARE, MEDICAID, SELFPAY ==
--- OUTSIDE RECORDS SUMMARY | 2024-09-04 15:14 | XMS_ITS | Encounter Summary ---
Author Organization Healthcare Address [address] [place] [address] Care Team Providers Care Big Machine Consultant Name Role Phone Pcp, No Primary Care Provider Robel Bobo MD Primary Care Provider Evelina bradenilable Hmuera Morales LPN Unavailable UnavailAsmita Gonzalez PROFESSOR OF ENVIRONMENTAL SCIENCE Unavailable Unavailable Encounter Details Date Type Department Care Team (Late st Contact Info) Description 12/13/2023 [facility] Outreach [facility] [address] [place] [address] Raz Gomez Social History Tobacco Use Types [...] drink first t jacques in the morning (EYE-COUNTY NURSE) to steady your nerves or to get [...] documented as of this encounter Care Teams Big Machine Consultant Relationship Specialty Start Date End Date Pcp, No [address] [place] [address] PCP - General Family Medicine 12/13/23 12/13/23 Robel Stokes MD [address] [place] [address] PCP - General Family Medicine 12/14/23 Humera Morales LPN [facility] TCM Nurse Internal Medicine 12/23/23 01/22/24 Asmita Montalvo, PROFESS[place] [address] Tissue Coordinator Director Of Physical Therapy 12/13/23 12/13/23 documented as of this encounter
--- OUTSIDE RECORDS SUMMARY | 2024-09-04 15:14 | XMS_ITS | Clinical Summary ---
Author Organization Healthcare Address [address] [place] [address] Care Team Providers Care County Extension Agent Name Role Phone Robel Stokes MD Primary [...] drink first t jacques in the morning (EYE-SUPERVISOR TREE TRIMMING) to steady your nerves or to get [...] Screening 1960 [facility]-Medicare Annual Wellness (AWV) 1960 [facility]-Infant/Child/Adol SDOH Screenings 1960 [id number] Vaccine (#1) 12/19/1963 Diabetes: Dental Exam 1968 [...] [facility]-Diabetes: Hemoglobin A1C 06/11/2024 12/13/2023 [facility]-Influenza Vaccine (#1) 2024 [facility]-Obesity Intervention Completed 12/12/2023 [facility]-Hepatitis C [...] Positive(A ) Negative 12/13/2023 2:29 AM EDT [facility] Blood Venous blood specimen / Unknown Venipuncture / Unknown 12/13/2023 1:24 AM EDT 12/13/2023 1:48 AM EDT us Yandel Oconnor MD LAB BLOOD ORDERABLES Final Result [facility] [address] [place] [address] * Hemoglobin A1c (12/13/2023 1:24 AM EDT) Hemoglobin A1c 5.5 <5.7 % 12/13/2023 6:49 AM EDT [facility] Blood Venous blood specimen / Unknown Venipuncture / Unknown 12/13/2023 1:24 AM EDT 12/13/2023 1:28 AM EDT Narrative [facility] - 12/13/2023 6:49 AM EDT HA1C Interpretive Data: Diagnosis of Diabetes: Diabetic > or = 6.5% Pre-diabetic 5.7 to 6.4% Non-diabetic < or = 5.6% Glycemic Targets for Type I and Type II Diabetics: Non- Adults <7.0% Adults <6.0% Children and Adolescents <7.5% Source: [place] [employer]. Standards of medical care in diabetes,2017. Diabetes Care.2017:40 (suppl 1):S1-S135. HbA1c assay performed by an ion-exchange chromatography method that is certified traceable to the DCCT. Luis Brookslavelle LEAD SEWAGE PLANT OPERATOR, DNP LAB BLOOD ORDERABLES Fi nal Result [facility] [address] [place] [address] from Last 3 Months or Most Recently Relevant to Health Maintenance Insurance [place] HU[place]NA MEDICARE Advance Directives * Full Code (Latest Code Status on File) Date Activated Date Inactivated Comments 12/13/2023 3:56 AM 12/22/2023 4:56 PM Question Answer Comments Patient has decision-making capacity? Yes Care Teams County Extension Agent Relationship Specialty Start Date End Date Robel Stokes MD PCP - General Family Medicine 12/14/23
[2024-09-04 19:23] LABS: Barbiturates Screen,Urine Negative ng/ml (<200)
[2024-09-04 19:24] LABS: Amphetamine/Metha Screen,Urine Negative ng/ml (<1000); Benzodiazepines Screen,Urine Positive ng/ml (<200)
[2024-09-04 19:25] LABS: Methadone Screen,Urine Negative ng/ml (<300)
[2024-09-04 19:27] LABS: Opiate Screen,Urine Negative ng/ml (<300)
[2024-09-04 19:28] LABS: Phencyclidine Screen,Urine Negative ng/ml (<25)
== END 2024-09-04 23:59 | disposition home or self-care (01) ==
LOC: LAB 15:11
PROVIDERS: PCP Family Medicine; Visit Provider Psychiatry & Neurology Psychiatry
DX: Z51.81 Encounter for therapeutic drug level monitoring (principal)
CPT/HCPCS: 80307

== ENCOUNTER 2024-11-01 15:58 | Outpatient (CLI) | payer MEDICARE, MEDICAID, SELFPAY ==
--- OUTSIDE RECORDS SUMMARY | 2024-11-01 16:00 | XMS_ITS | Clinical Summary ---
Author Organization Healthcare Address [address] [place] [address] Care Team Providers Care Bowling Ball Weigher And Packer Name Role Phone Robel Stokes MD Primary [...] drink first t jacques in the morning (EYE-EQUIP TECH) to steady your nerves or to get [...] Wellness (AWV) 1960 [facility]-Infant/Child/Adol SDOH Screenings 1960 [id number] Vaccine (#1) 12/19/1963 Diabetes: Dental Exam 1968 [...] Positive(A ) Negative 12/13/2023 2:29 AM EDT [facility] Blood Venous blood specimen / Unknown Venipuncture / Unknown 12/13/2023 1:24 AM EDT 12/13/2023 1:48 AM EDT us Yandel Oconnor MD LAB BLOOD ORDERABLES Final Result [facility] [address] [place] [address] * Hemoglobin A1c (12/13/2023 1:24 AM EDT) Hemoglobin A1c 5.5 <5.7 % 12/13/2023 6:49 AM EDT [facility] Blood Venous blood specimen / Unknown Venipuncture / Unknown 12/13/2023 1:24 AM EDT 12/13/2023 1:28 AM EDT Narrative [facility] - 12/13/2023 6:49 AM EDT HA1C Interpretive Data: Diagnosis of Diabetes: Diabetic > or = 6.5% Pre-diabetic 5.7 to 6.4% Non-diabetic < or = 5.6% Glycemic Targets for Type I and Type II Diabetics: Non- Adults <7.0% Adults <6.0% Children and Adolescents <7.5% Source: [place] [employer]. Standards of medical care in diabetes,2017. Diabetes Care.2017:40 (suppl 1):S1-S135. HbA1c assay performed by an ion-exchange chromatography method that is certified traceable to the DCCT. Luis Brookslavelle GRADER TENDER, DNP LAB BLOOD ORDERABLES Fi nal Result [facility] [address] [place] [address] from Last 3 Months or Most Recently Relevant to Health Maintenance Insurance [place] MEDICARE Advance Directives * Full Code (Latest Code Status on File) Date Activated Date Inactivated Comments 12/13/2023 3:56 AM 12/22/2023 4:56 PM Question Answer Comments Patient has decision-making capacity? Yes Care Teams Bowling Ball Weigher And Packer Relationship Specialty Start Date End Date Robel Stokes MD PCP - General Family Medicine 12/14/23
[2024-11-01 18:59] LABS: Thyroid Stimulating Hormone 0.06 uIU/mL (0.465-4.68)
== END 2024-11-01 23:59 | disposition home or self-care (01) ==
LOC: LAB 15:59
PROVIDERS: PCP Family Medicine; Visit Provider Family Medicine
DX: F31.9 Bipolar disorder, unspecified (principal); E06.3 Autoimmune thyroiditis; Z79.899 Other long term (current) drug therapy
CPT/HCPCS: 36415; 80178; 84443

== ENCOUNTER 2024-12-26 16:36 | Outpatient (CLI) | payer MEDICARE, MEDICAID, SELFPAY ==
--- OUTSIDE RECORDS SUMMARY | 2024-12-26 16:38 | XMS_ITS | Clinical Summary ---
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) to steady your nerves or to get [...] Wellness (AWV) 1960 [facility]-Infant/Child/Adol SDOH Screenings 1960 [id number] Vaccine (#1) 12/19/1963 Diabetes: Dental Exam 1968 [...] Positive(A ) Negative 12/13/2023 2:29 AM EDT [facility] Blood Venous blood specimen / Unknown Venipuncture / Unknown 12/13/2023 1:24 AM EDT 12/13/2023 1:48 AM EDT us Yandel Oconnor MD LAB BLOOD ORDERABLES Final Result [facility] [address] [place] [address] * Hemoglobin A1c (12/13/2023 1:24 AM EDT) Hemoglobin A1c 5.5 <5.7 % 12/13/2023 6:49 AM EDT [facility] Blood Venous blood specimen / Unknown Venipuncture / Unknown 12/13/2023 1:24 AM EDT 12/13/2023 1:28 AM EDT Narrative [facility] - 12/13/2023 6:49 AM EDT HA1C Interpretive Data: Diagnosis of Diabetes: Diabetic > or = 6.5% Pre-diabetic 5.7 to 6.4% Non-diabetic < or = 5.6% Glycemic Targets for Type I and Type II Diabetics: Non- Adults <7.0% Adults <6.0% Children and Adolescents <7.5% Source: [place] [employer]. Standards of medical care in diabetes,2017. Diabetes Care.2017:40 (suppl 1):S1-S135. HbA1c assay performed by an ion-exchange chromatography method that is certified traceable to the DCCT. Luis Brookslavelle PRESS OPERATOR [employer], DNP LAB BLOOD ORDERABLES Fi nal Result [facility] [address] [place] [address] from Last 3 Months or Most Recently Relevant to Health Maintenance Insurance [place]ICA[place] MEDICARE Advance Directives * Full Code (Latest Code Status on File) Date Activated Date Inactivated Comments 12/13/2023 3:56 AM 12/22/2023 4:56 PM Question Answer Comments Patient has decision-making capacity? Yes Care Teams Insole Rasper Relationship Specialty Start Date End Date Robel Stokes MD PCP - General Family Medicine 12/14/23
[2024-12-26 18:00] LABS: Albumin Level 4.7 g/dl (3.5-5.0)
[2024-12-26 18:03] LABS: Alanine Aminotransferase 16 U/L (12-78); Alkaline Phosphatase 79 U/L (38-126); Aspartate Amino Transferase 27 U/L (14-36); Bilirubin,Direct 0.1 mg/dl (0.0-0.4); Bilirubin,Indirect 1.0 mg/dL (0.0-0.9); Bilirubin,Total 1.1 mg/dl (0.2-1.3); Bilirubin,Unconjugated 1.1 mg/dL (0.0-1.1); Total Protein,Serum 6.8 g/dl (6.3-8.2)
== END 2024-12-26 23:59 | disposition home or self-care (01) ==
LOC: LAB 16:37
PROVIDERS: PCP Family Medicine; Visit Provider Nurse Practitioner
DX: Z13.818 Encounter for screening for other digestive system disorders (principal)
CPT/HCPCS: 36415; 80076

== ENCOUNTER 2025-01-03 13:55 | Outpatient (CLI) | payer MEDICARE, MEDICAID, SELFPAY ==
--- NOTE | 2025-01-03 13:00 | US_ITS ---
FINAL REPORT CLINICAL HISTORY: Evaluation of Decreased Pedal Pulses, DM with neuropathy, tingling sensation in legs FINDINGS: LOWER EXTREMITY SEGMENTAL PRESSURE MEASUREMENTS Pressure indices are as follows: RIGHT LOWER EXTREMITY: Lower thigh: 1.0 Calf: 0.94 Ankle, posterior tibial artery: 0.92 Ankle, dorsalis pedis: 1.2 Toe: 1.0 LIOR: 1.2 LEFT LOWER EXTREMITY: Lower thigh: 1.0 Calf: 1.0 Ankle, posterior tibial artery: 0.94 Ankle, dorsalis pedis: 1.2 Toe: 1.1 LIOR: 1.2 IMPRESSION: Normal pressure indices. Reviewed, Interpreted and Dictated by Unique Tran MD Transcribed by Stephanie Epps Authenticated and [facility]
--- OUTSIDE RECORDS SUMMARY | 2025-01-03 14:15 | XMS_ITS | Clinical Summary ---
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) to steady your nerves or to get [...] Wellness (AWV) 1960 [facility]-Infant/Child/Adol SDOH Screenings 1960 [id number] Vaccine (#1) 12/19/1963 Diabetes: Dental Exam 1968 [...] Positive(A ) Negative 12/13/2023 2:29 AM EDT [facility] Blood Venous blood specimen / Unknown Venipuncture / Unknown 12/13/2023 1:24 AM EDT 12/13/2023 1:48 AM EDT us Yandel Oconnor MD LAB BLOOD ORDERABLES Final Result [facility] [address] [place] [address] * Hemoglobin A1c (12/13/2023 1:24 AM EDT) Hemoglobin A1c 5.5 <5.7 % 12/13/2023 6:49 AM EDT [facility] Blood Venous blood specimen / Unknown Venipuncture / Unknown 12/13/2023 1:24 AM EDT 12/13/2023 1:28 AM EDT Narrative [facility] - 12/13/2023 6:49 AM EDT HA1C Interpretive Data: Diagnosis of Diabetes: Diabetic > or = 6.5% Pre-diabetic 5.7 to 6.4% Non-diabetic < or = 5.6% Glycemic Targets for Type I and Type II Diabetics: Non- Adults <7.0% Adults <6.0% Children and Adolescents <7.5% Source: [place] [employer]. Standards of medical care in diabetes,2017. Diabetes Care.2017:40 (suppl 1):S1-S135. HbA1c assay performed by an ion-exchange chromatography method that is certified traceable to the DCCT. Luis Brookslavelle JUVENILE COURT JUDGE, DNP LAB BLOOD ORDERABLES Fi nal Result [facility] [address] [place] [address] from Last 3 Months or Most Recently Relevant to Health Maintenance Insurance [place] MEDICARE Advance Directives * Full Code (Latest Code Status on File) Date Activated Date Inactivated Comments 12/13/2023 3:56 AM 12/22/2023 4:56 PM Question Answer Comments Patient has decision-making capacity? Yes Care Teams Elevator Mechanic Apprentice Relationship Specialty Start Date End Date Robel Stokes MD PCP - General Family Medicine 12/14/23
== END 2025-01-03 23:59 | disposition home or self-care (01) ==
LOC: RT 13:56
PROVIDERS: PCP Family Medicine; Visit Provider Nurse Practitioner
DX: E11.40 Type 2 diabetes mellitus with diabetic neuropathy, unspecified (principal); R09.89 Other specified symptoms and signs involving the circulatory and respiratory systems
CPT/HCPCS: 93923